=== PATIENT | female | born 1980 | race Caucasian/White ===

== ENCOUNTER 2020-03-29 08:03 | Outpatient (CLI) | payer OTHER, SELFPAY ==
--- NOTE | ~2020-03-29 | MM_ITS ---
EXAMINATION: MM screening leonila BI w livier HISTORY: Screening mammogram TECHNIQUE: Craniocaudal and mediolateral oblique 3-D tomosynthesis images were obtained and synthetic 2-D images were generated. CAD analysis was submitted and interpreted. COMPARISON: 04/28/2019, 10/14/2018, 09/23/2018 BREAST PARENCHYMAL COMPOSITION: There are scattered areas of fibroglandular density. FINDINGS: RIGHT BREAST: Again seen are indeterminate calcifications in the anterior third of the slightly outer breast at the 10:00 location 3 cm from the nipple for which the patient is overdue for diagnostic ma mmogram. Although these appear to be stable, magnification views are recommended. LEFT BREAST: There is no evidence of suspicious mass, calcification, or architectural distortion to s uggest malignancy. There has been no significant interval change. IMPRESSION: 1. No mammographic evidence of malignancy in the left breast. 2. Patient overdue for right diagnostic mammogram and ultrasound to evaluate probably benign right br east calcifications and right breast mass. Right diagnostic mammogram and ultrasound recommended. BI-RADS Category 0: Incomplete: Needs additional imaging evaluation. Reviewed, dictated and finalized at location A. IMPRESSION: 1. No mammographic evidence of malignancy in the left breast. 2. Patient overdue for right diagnostic mammogram and ultrasound to evaluate pr obably benign right breast calcifications and right breast mass. Right diagnost ic mammogram and ultrasound recommended. BI-RADS Category 0: Incomplete: Needs additional imaging evaluation.
== END 2020-03-29 08:04 | disposition home or self-care (01) ==
LOC: ANHIMG 08:04
PROVIDERS: PCP Family Medicine; Visit Provider Nurse Practitioner Family
DX: Z12.31 Encounter for screening mammogram for malignant neoplasm of breast (principal); R92.8 Other abnormal and inconclusive findings on diagnostic imaging of breast
CPT/HCPCS: 77063; 77067

== ENCOUNTER → 2020-04-13 14:42 | Outpatient (CLI) | payer OTHER, SELFPAY ==
--- NOTE | ~2020-04-13 | MMUS_ITS ---
EXAMINATION: MM diagnostic mammo unilat RT, US breast RT complete HISTORY: 1. 04/28/2019 mammogram report confirmed indeterminate microcalcifications in the anterior third of sl ightly outer breast at 10:00 3 cm from nipple 2. Follow-up of 04/28/2019 mammogram report of 5 x 3 mm circumscribed parallel hypoechoic mass with no posterior features or internal vascularity at 9:00 location near the nipple TECHNIQUE: Additional 3-D tomosynthesis images of the right breast were performed and synthetic 2-D i mages were generated. CAD analysis was submitted and interpreted. High resolution complete right ana st ultrasound was performed. COMPARISON: 04/28/2019 diagnostic right digital mammogram and complete right breast ultrasound BREAST PARENCHYMAL COMPOSITION: There are scattered areas of fibroglandular density. FINDINGS: MAMMOGRAPHIC FINDINGS: Some punctate benign appearing microcalcifications are noted. No malignant features are identified. These include: -Some microcalcifications associated with possible 6 mm mass in the lower inner aspect of the upper o uter quadrant approximately 3 cm deep to the nipple. -Another cluster of grouped microcalcifications is noted in association with an approximately 3.4 x 7 .7 mm circumscribed density in the posterior aspect of the upper inner quadrant of the right breast. No suspicious mass or suspicious microcalcifications, architectural distortion or any skin thickening or retraction or noted. ULTRASOUND: No suspicious mass or shadowing is identified. IMPRESSION: 1. No mammographic evidence of malignancy 2. Routine annual mammographic screening is recommended. BI-RADS Category 2: Benign finding(s). Reviewed, dictated and finalized at location A. IMPRESSION: 1. No mammographic evidence of malignancy 2. Routine annual mammographic screening is recommended. BI-RADS Category 2: Benign finding(s).
== END ==
PROVIDERS: PCP Nurse Practitioner Family; Visit Provider Nurse Practitioner Family
DX: R92.8 Other abnormal and inconclusive findings on diagnostic imaging of breast (principal)
CPT/HCPCS: 76641; 77065

== ENCOUNTER → 2020-10-27 01:02 | Outpatient (CLI) | payer OTHER, SELFPAY ==
[2020-10-27 19:48] LABS: SARS-CoV-2 RNA PCR Negative
== END ==
PROVIDERS: PCP Nurse Practitioner Family; Visit Provider Internal Medicine Gastroenterology
DX: Z01.812 Encounter for preprocedural laboratory examination (principal); Z20.822 Contact with and (suspected) exposure to COVID-19
CPT/HCPCS: C9803; U0003; U0005

== ENCOUNTER 2020-10-31 01:37 | Day surgery (SDC) | payer OTHER, SELFPAY ==
[2020-10-11 10:45] VITALS: BMI 37.0
[2020-10-31 07:13] VITALS: BP 114/68; PULSE 73; RESP 16; TEMP 36.6; O2SAT 99; BMI 38.2
[2020-10-31] MEDS: LACTATED RINGERS 1,000 ML 150 ML IV CONT (07:22)
--- NOTE | 2020-10-31 07:41 | WPDANESEPPF ---
Anes - Initial Pre Proc Eval Procedure: Operation Date: 10/31/20 08:30 Proposed Procedures p Screening Colonoscopy - Alejandro Deras MD Date/Time: 10/31/20 07:41 Surgeon: Alejandro Deras MD Pre Op Diagnosis: Neoplasm Screening Patient Data Age: 40 Gender: F Height: 5 ft 5 in Weight: 104.3 kg Last Vital Signs Temp 36.6 C 10/31/20 07:13 Pulse 73 10/31/20 07:13 Resp 16 10/31/20 07:13 BP 114/68 10/31/20 07:13 Pulse Ox 99 10/31/20 07:13 Allergies Allergy/AdvReac Type Severity Reaction Status Date / Time iohexol Allergy Mild rash Verified 10/31/20 07:06 Cephalosporins Allergy Unknown Abdominal Verified 10/31/20 07:06 Pain doxycycline Allergy Unknown Abdominal Verified 10/31/20 07:06 Pain erythromycin base Allergy Unknown Abdominal Verified 10/31/20 07:06 Pain Penicillins Allergy Unknown Hives/SOB Verified 10/31/20 07:06 Home Medications Medication Instructions Recorded Confirmed Type levonorgestrel 20 mcg/24 hours (6 1 device I-UTERINE ONCE 11/07/19 10/11/20 History yrs) 52 mg intrauterine device nystatin-triamcinolone 100,000 1 applic TOPICAL BID #30 gm 02/01/20 10/11/20 Rx unit/gram-0.1 % topical ointment clotrimazole-betamethasone 1 1 applic TOPICAL BID 14 Days #45 gm 08/02/20 10/11/20 Rx %-0.05 % topical cream escitalopram oxalate 10 mg tablet See Rx Instructions .ROUTE 08/07/20 10/11/20 Rx .COMPLEX #90 tablet alprazolam 0.25 mg tablet 0.25 mg PO DAILY PRN #30 tablet 10/04/20 10/11/20 Rx fenofibrate 160 mg tablet 160 mg PO DAILY #90 tablet 10/04/20 10/11/20 Rx atorvastatin 40 mg tablet See Rx Instructions .ROUTE 10/05/20 10/11/20 Rx .COMPLEX #30 tablet esomeprazole magnesium 40 mg See Rx Instructions .ROUTE 10/08/20 10/31/20 Rx capsule,delayed release .COMPLEX #90 cap sodium,potassium,mag sulfates 17.5 See Rx Instructions PO .COMPLEX 10/08/20 Rx gram-3.13 gram-1.6 gram oral soln #354 ml Patient hx anesthesia problems: none Family hx anesthesia problems: none PMFSH Past Medical History Medical History Anal fissure Anxiety Decubitus ulcers Diarrhea Epigastric pain Headache Mixed hyperlipidemia Prediabetes Vaginal delivery x2 Vitamin D deficiency Surgical History Surgical History History of cholecystectomy History of tonsillectomy Family History Family History Father Family history of glaucoma Mother Hypertension Family history of arthritis Family history of malignant neoplasm Family history of hypercholesterolemia Grandparent Family history of hypercholesterolemia Hypertension Cerebrovascular accident Other Acute myocardial infarction Family history of dementia Social History Social History Smoking status: Never smoker Alcohol intake: never Substance use: never Substance use type: does not use Living arrangements: with family Spiritual care concerns: No Anes - Eval Final PreProcedure Day of Procedure 10/31/20 07:41 Patient weight: obese Heart: regular rate and rhythm Lungs: clear to auscultation Airway: Mallampati scale class II Neurological: alert and oriented Last oral intake: >/= 8 hours ASA classification: III Emergent: no Anesthetic plan: proceed Anesthesia type and monitoring: general GIVS and standard monitoring Informed Consent: The patient's anesthetic plan and its attendant risks and benefits were discussed with the patient/family/POA. Questions were solicited and answers provided to the satisfaction of the patient/family/POA.
--- NOTE | 2020-10-31 08:53 | PM.HPGS ---
History of Present Illness History of Present Illness Consent: Risks, benefits, and alternatives have been discussed and questions answered. Patient agrees to proceed with procedure. Chief complaint: Neoplasm Screening Narrative: Josy Dawson is a 40 year old female here for screening colonoscopy, never had one Review of Systems Constitutional: Constitutional: Denies headache(s) and Denies weakness Eyes: Eyes: Denies blurry vision ENT: Reports Normal hearing present, Denies headache(s) and Denies neck pain Cardiovascular: Cardiovascular: Denies chest pain and Denies dyspnea Respiratory: Respiratory: Denies dyspnea Gastrointestinal: Gastrointestinal: Reports no additional gastrointestinal complaints Genitourinary: Genitourinary: Denies dysuria Musculoskeletal: Musculoskeletal: Denies neck pain Integumentary/Breasts: Skin/Breast: Denies dry skin Neurologic: Reports Normal hearing present, Denies headache(s) and Denies weakness Psychiatric: Psychiatric: Denies anxiety Endocrine: Endocrine: Denies change in body appearance Hematologic/Lymphatic: Hematologic/Lymphatic: Denies easy bleeding Allergic/Immunologic: Allergic/Immunologic: Denies urticaria PMFSH Past Medical History Medical History Anal fissure Anxiety Decubitus ulcers Diarrhea Epigastric pain Headache Mixed hyperlipidemia Prediabetes Vaginal delivery x2 Vitamin D deficiency Surgical History Surgical History History of cholecystectomy History of tonsillectomy Family History Family History Father Family history of glaucoma Mother Hypertension Family history of arthritis Family history of malignant neoplasm Family history of hypercholesterolemia Grandparent Family history of hypercholesterolemia Hypertension Cerebrovascular accident Other Acute myocardial infarction Family history of dementia Social History Social History Smoking status: Never smoker Alcohol intake: never Substance use: never Substance use type: does not use Living arrangements: with family Spiritual care concerns: No Meds Home Medications and Allergies Home Medications Medication Instructions Recorded Confirmed Type levonorgestrel 20 mcg/24 hours (6 1 device I-UTERINE ONCE 11/07/19 10/11/20 History yrs) 52 mg intrauterine device nystatin-triamcinolone 100,000 1 applic TOPICAL BID #30 gm 02/01/20 10/11/20 Rx unit/gram-0.1 % topical ointment clotrimazole-betamethasone 1 1 applic TOPICAL BID 14 Days #45 gm 08/02/20 10/11/20 Rx %-0.05 % topical cream escitalopram oxalate 10 mg tablet See Rx Instructions .ROUTE 08/07/20 10/11/20 Rx .COMPLEX #90 tablet alprazolam 0.25 mg tablet 0.25 mg PO DAILY PRN #30 tablet 10/04/20 10/11/20 Rx fenofibrate 160 mg tablet 160 mg PO DAILY #90 tablet 10/04/20 10/11/20 Rx atorvastatin 40 mg tablet See Rx Instructions .ROUTE 10/05/20 10/11/20 Rx .COMPLEX #30 tablet esomeprazole magnesium 40 mg See Rx Instructions .ROUTE 10/08/20 10/31/20 Rx capsule,delayed release .COMPLEX #90 cap sodium,potassium,mag sulfates 17.5 See Rx Instructions PO .COMPLEX 10/08/20 Rx gram-3.13 gram-1.6 gram oral soln #354 ml Allergies Allergy/AdvReac Type Severity Reaction Status Date / Time iohexol Allergy Mild rash Verified 10/31/20 07:06 Cephalosporins Allergy Unknown Abdominal Verified 10/31/20 07:06 Pain doxycycline Allergy Unknown Abdominal Verified 10/31/20 07:06 Pain erythromycin base Allergy Unknown Abdominal Verified 10/31/20 07:06 Pain Penicillins Allergy Unknown Hives/SOB Verified 10/31/20 07:06 Vital Signs Vital Signs - 24 hr 10/31/20 07:13 Temperature 97.9 F Pulse Rate 73 Respiratory Rate 16 Blood Pressure 114/68 Pulse Oximetry 99 Exam Const
[2020-10-31 09:12] VITALS: BP 104/63; PULSE 76; RESP 18; O2SAT 99
[2020-10-31 09:22] VITALS: BP 106/59; PULSE 77; RESP 20; O2SAT 100
[2020-10-31 09:32] VITALS: BP 112/69; PULSE 68; RESP 18; O2SAT 99
== END 2020-10-31 09:47 | disposition home or self-care (01) ==
PROVIDERS: PCP Nurse Practitioner Family; Visit Provider Internal Medicine Gastroenterology
PROC: 0DJD8ZZ Inspection of Lower Intestinal Tract, Via Natural or Artificial Opening Endoscopic (ICD-10-PCS; CPT 45378; principal; 2020-10-31 08:30)
DX: Z12.11 Encounter for screening for malignant neoplasm of colon (principal); D12.2 Benign neoplasm of ascending colon; D12.4 Benign neoplasm of descending colon; K63.5 Polyp of colon; R73.03 Prediabetes; E78.2 Mixed hyperlipidemia; E55.9 Vitamin D deficiency, unspecified; F41.9 Anxiety disorder, unspecified; E66.9 Obesity, unspecified; Z68.38 Body mass index [BMI] 38.0-38.9, adult
CPT/HCPCS: 45380; 45385; 88305; C9803; J2704; J7120; U0003; U0005

== ENCOUNTER 2021-04-22 08:00 | Outpatient (CLI) | payer OTHER, SELFPAY ==
--- NOTE | ~2021-04-22 | MM_ITS ---
EXAMINATION: MM screening leonila BI w livier HISTORY: Screening TECHNIQUE: Craniocaudal and mediolateral oblique 3-D tomosynthesis images were obtained and synthetic 2-D images were generated. CAD analysis was submitted and interpreted. COMPARISON: Comparison to multiple prior studies sequentially, with oldest reviewed study dated 09/23. BREAST PARENCHYMAL COMPOSITION: There are scattered areas of fibroglandular density. FINDINGS: There is no evidence of suspicious mass, calcification, or architectural distortion to sugg est malignancy in either breast. There has been no suspicious interval change. IMPRESSION: 1. No mammographic evidence of malignancy. 2. Recommend routine screening mammography in one year. BI-RADS Category 1: Negative Reviewed, dictated and finalized at location A.
== END 2021-04-22 08:01 | disposition home or self-care (01) ==
LOC: ANHIMG 08:04
PROVIDERS: PCP Nurse Practitioner Family; Visit Provider Nurse Practitioner Family
DX: Z12.31 Encounter for screening mammogram for malignant neoplasm of breast (principal)
CPT/HCPCS: 77063; 77067

== ENCOUNTER 2022-04-04 08:41 | Outpatient (CLI) | payer OTHER, SELFPAY ==
[2022-04-04 20:35] LABS: Hemoglobin A1C 6.7 % (<5.7)
[2022-04-04 20:38] LABS: Alanine Aminotransferase 28 U/L (6-35); Albumin Level 4.2 g/dL (3.5-5.1); Alkaline Phosphatase 70 U/L (38-126); Anion Gap 6 mmol/L (8-16); Aspartate Amino Transferase 41 U/L (14-36); Bilirubin,Total 0.5 mg/dL (0.2-1.3); Blood Urea Nitrogen 11 mg/dL (7-17); Calcium 8.6 mg/dL (8.4-10.2); Carbon Dioxide 28 mmol/L (22-30); Chloride 105 mmol/L (98-107); Cholesterol 133 mg/dL (0-200); Estimated Glomerular Filt Rate > 60; Glucose 139 mg/dL (65-110); HDL Direct 48 mg/dL; Potassium 4.5 mmol/L (3.4-5.0); Sodium 139 mmol/L (137-145); Triglycerides 211 mg/dL (<150)
[2022-04-04 21:02] LABS: LDL Cholesterol Direct < 30 mg/dL
[2022-04-04 21:31] LABS: Vitamin D 25 Hydroxy 13.6 ng/mL
== END 2022-04-04 08:42 | disposition home or self-care (01) ==
LOC: ANHGOSHLAB 08:43
PROVIDERS: PCP Family Medicine; Visit Provider Nurse Practitioner Family
DX: E55.9 Vitamin D deficiency, unspecified (principal); E78.5 Hyperlipidemia, unspecified; I10 Essential (primary) hypertension; R73.03 Prediabetes
CPT/HCPCS: 36415; 80053; 80061; 82306; 83036

== ENCOUNTER 2022-05-21 14:32 | Outpatient (CLI) | payer OTHER, SELFPAY ==
--- NOTE | ~2022-05-21 | MM_ITS ---
EXAMINATION: MM screening leonila BI w livier HISTORY: Screening mammogram TECHNIQUE: Craniocaudal and mediolateral oblique 3-D tomosynthesis images were obtained and synthetic 2-D images were generated. CAD analysis was submitted and interpreted. COMPARISON: 05/02/2021 bilateral screening mammogram 04/13/2020 diagnostic right mammogram and complete right breast ultrasound 03/29/2020 bilateral screening mammogram 09/23/2018 bilateral screening mammogram BREAST PARENCHYMAL COMPOSITION: There are scattered areas of fibroglandular density. FINDINGS: Approximately 5 x 7 mm soft tissue opacity with subtle rounded and punctate microcalcificat ions is noted at the posterior mid inner right breast. This appears stable since 09/23/2018. There is no evidence of suspicious mass, calcification, or architectural distortion to suggest malign aysha in either breast. There has been no suspicious interval change. IMPRESSION: 1. Benign finding 2. Routine mammographic screening is recommended. BI-RADS Category 2: Benign finding(s). Reviewed, dictated and finalized at location A.
== END 2022-05-21 14:33 | disposition home or self-care (01) ==
PROVIDERS: PCP Family Medicine; Visit Provider Nurse Practitioner Family
DX: Z12.31 Encounter for screening mammogram for malignant neoplasm of breast (principal)
CPT/HCPCS: 77063; 77067

== ENCOUNTER 2022-07-11 09:05 | Outpatient (CLI) | payer OTHER, SELFPAY ==
[2022-07-11 19:41] LABS: Basophils Absolute Auto 0.1 K/mm3 (0.0-0.1); Basophils Percent Auto 0.6 % (0.2-1.2); Eosinophils Absolute Auto 0.1 K/mm3 (0-0.3); Eosinophils Percent Auto 1.8 % (0-4.4); Hematocrit 41.3 % (37.0-47.0); Immature Granulocyte Absolute 0.02 K/mm3 (0.00-0.031); Immature Granulocyte Percent A 0.3 % (0-0.5); Lymphocytes Absolute Auto 2.92 K/mm3 (0.9-3.2); Lymphocytes Percent Auto 37.2 % (18.3-44.2); Mean Corpuscular HGB Conc 31.5 g/dl (32-36); Mean Corpuscular Hemoglobin 27.5 pg (26-34); Mean Corpuscular Volume 87.5 fl (80-100); Mean Platelet Volume 10.5 fl (7.4-10.4); Monocytes Absolute Auto 0.4 K/mm3 (0.1-0.6); Neutrophils Absolute Auto 4.3 K/mm3 (1.3-6.7); Neutrophils Percent Auto 55.1 % (45.5-73.1); Platelet Count Result 312 k/mm3 (150-375); Red Blood Count 4.72 M/mm3 (4.2-5.4); Red Cell Distribution Width 12.9 % (11.5-14.5); White Blood Count 7.9 K/mm3 (4.5-10.0)
[2022-07-11 19:57] LABS: Alanine Aminotransferase 35 U/L (6-35); Albumin Level 4.4 g/dL (3.5-5.1); Alkaline Phosphatase 72 U/L (38-126); Anion Gap 11 mmol/L (8-16); Aspartate Amino Transferase 29 U/L (14-36); Bilirubin,Total 0.4 mg/dL (0.2-1.3); Blood Urea Nitrogen 12 mg/dL (7-17); Calcium 9.2 mg/dL (8.4-10.2); Carbon Dioxide 25 mmol/L (22-30); Chloride 100 mmol/L (98-107); Cholesterol 123 mg/dL (0-200); Estimated Glomerular Filt Rate > 60; Glucose 144 mg/dL (65-110); HDL Direct 43 mg/dL; Sodium 136 mmol/L (137-145); Triglycerides 206 mg/dL (<150)
[2022-07-11 20:07] LABS: Hemoglobin A1C 7.1 % (<5.7)
[2022-07-11 20:46] LABS: LDL Cholesterol Direct < 30 mg/dL
== END 2022-07-11 09:06 | disposition home or self-care (01) ==
LOC: ANHGOSHLAB 09:10
PROVIDERS: PCP Family Medicine; Visit Provider Nurse Practitioner Family
DX: E11.9 Type 2 diabetes mellitus without complications (principal); E78.2 Mixed hyperlipidemia
CPT/HCPCS: 36415; 80053; 80061; 83036; 85025

== ENCOUNTER 2022-11-25 09:32 | Outpatient (CLI) | payer OTHER, SELFPAY ==
[2022-11-25 12:15] LABS: Kit Draw Collected
== END 2022-11-25 09:33 | disposition home or self-care (01) ==
LOC: ANHGOSHLAB 09:33
PROVIDERS: PCP Family Medicine; Visit Provider Nurse Practitioner Family
DX: E03.9 Hypothyroidism, unspecified (principal); E11.9 Type 2 diabetes mellitus without complications; E55.9 Vitamin D deficiency, unspecified; E78.2 Mixed hyperlipidemia
CPT/HCPCS: 36415

== ENCOUNTER 2023-03-03 11:50 | Outpatient (CLI) | payer OTHER, SELFPAY ==
[2023-03-03 16:42] LABS: Hemoglobin A1C 5.9 % (<5.7)
== END 2023-03-03 11:51 | disposition home or self-care (01) ==
LOC: ANHGOSHLAB 11:51
PROVIDERS: PCP Family Medicine; Visit Provider Family Medicine
DX: E11.9 Type 2 diabetes mellitus without complications (principal)
CPT/HCPCS: 36415; 83036

== ENCOUNTER 2023-03-05 10:21 | Outpatient (RCR) | payer OTHER, SELFPAY ==
[2023-03-05 08:19] VITALS: BMI 38.2
== END 2023-05-25 10:07 | disposition home or self-care (01) ==
LOC: ANHDMC 10:21
PROVIDERS: PCP Family Medicine; Visit Provider Family Medicine
DX: E11.9 Type 2 diabetes mellitus without complications (principal); E66.9 Obesity, unspecified; Z68.39 Body mass index [BMI] 39.0-39.9, adult; Z71.3 Dietary counseling and surveillance
CPT/HCPCS: 97802

== ENCOUNTER 2023-06-09 08:17 | Outpatient (CLI) | payer OTHER, SELFPAY ==
[2023-06-09 12:21] LABS: Alanine Aminotransferase 37 U/L (6-35); Albumin Level 4.2 g/dL (3.5-5.1); Alkaline Phosphatase 58 U/L (38-126); Anion Gap 7 mmol/L (8-16); Aspartate Amino Transferase 70 U/L (14-36); Bilirubin,Total 0.5 mg/dL (0.2-1.3); Blood Urea Nitrogen 10 mg/dL (7-17); Carbon Dioxide 27 mmol/L (22-30); Chloride 103 mmol/L (98-107); Estimated Glomerular Filt Rate 60; Glucose 105 mg/dL (65-110); Potassium 3.9 mmol/L (3.4-5.0); Sodium 137 mmol/L (137-145)
[2023-06-09 12:54] LABS: Hemoglobin A1C 5.6 % (<5.7)
== END 2023-06-09 08:18 | disposition home or self-care (01) ==
LOC: ANHGOSHLAB 08:19
PROVIDERS: PCP Family Medicine; Visit Provider Family Medicine
DX: E11.9 Type 2 diabetes mellitus without complications (principal); I10 Essential (primary) hypertension; G43.909 Migraine, unspecified, not intractable, without status migrainosus; Z13.29 Encounter for screening for other suspected endocrine disorder
CPT/HCPCS: 36415; 80053; 83036; 84443

== ENCOUNTER 2023-11-30 12:12 | Outpatient (CLI) | payer BC, OTHER, SELFPAY ==
--- NOTE | ~2023-11-30 | XR_ITS ---
Lumbosacral Spine: AP and lateral views Clinical History: Pain Findings: The normal lordotic curve is maintained. The vertebral bodies and posterior elements are i ntact. The intervertebral disc spaces are preserved. The sacroiliac joints are normally outlined. Impression: No significant abnormality. Reviewed, dictated and finalized at [facility]. Impression: No significant abnormality.
--- NOTE | ~2023-11-30 | XR_ITS ---
Cervical Spine: AP, lateral, open-mouth views Clinical History: Pain Findings: There is straightening of normal cervical lordosis. The vertebral bodies and posterior aleksandra ments appear intact. There is mild degenerative disc narrowing at C5-C6 and C6-C7. Pre-vertebral soft tissues are unremarkable. Impression: Mild degenerative spondylosis with straightening of the normal cervical lordosis. Reviewed, dictated and finalized at location . Impression: Mild degenerative spondylosis with straightening of the normal cervical lordosi s.
== END 2023-11-30 12:13 ==
PROVIDERS: PCP Family Medicine; Visit Provider Nurse Practitioner Family
DX: R20.2 Paresthesia of skin (principal); R20.0 Anesthesia of skin; M54.50 Low back pain, unspecified; M47.892 Other spondylosis, cervical region
CPT/HCPCS: 72040; 72100

== ENCOUNTER 2023-11-30 12:34 | Outpatient (CLI) | payer BC, OTHER, SELFPAY ==
[2023-11-30 19:24] LABS: Basophils Percent Auto 0.4 % (0.2-1.2); Eosinophils Absolute Auto 0.2 K/mm3 (0-0.3); Hematocrit 43.3 % (37.0-47.0); Hemoglobin 13.5 g/dL (12.0-15.0); Immature Granulocyte Absolute 0.02 K/mm3 (0.00-0.031); Immature Granulocyte Percent A 0.3 % (0-0.5); Lymphocytes Absolute Auto 2.82 K/mm3 (0.9-3.2); Lymphocytes Percent Auto 35.5 % (18.3-44.2); Mean Corpuscular HGB Conc 31.2 g/dl (32-36); Mean Corpuscular Hemoglobin 27.6 pg (26-34); Mean Corpuscular Volume 88.5 fl (80-100); Mean Platelet Volume 11.2 fl (7.4-10.4); Monocytes Absolute Auto 0.3 K/mm3 (0.1-0.6); Monocytes Percent Auto 4.3 % (2.6-8.5); Neutrophils Absolute Auto 4.6 K/mm3 (1.3-6.7); Neutrophils Percent Auto 57.5 % (45.5-73.1); Platelet Count Result 321 k/mm3 (150-375); Red Blood Count 4.89 M/mm3 (4.2-5.4); Red Cell Distribution Width 13.2 % (11.5-14.5)
[2023-11-30 19:57] LABS: Alanine Aminotransferase 25 U/L (6-35); Albumin Level 4.4 g/dL (3.5-5.1); Alkaline Phosphatase 60 U/L (38-126); Anion Gap 8 mmol/L (8-16); Aspartate Amino Transferase 58 U/L (14-36); Bilirubin,Total 0.6 mg/dL (0.2-1.3); Blood Urea Nitrogen 11 mg/dL (7-17); Calcium 9.6 mg/dL (8.4-10.2); Carbon Dioxide 27 mmol/L (22-30); Chloride 103 mmol/L (98-107); Cholesterol 125 mg/dL (0-200); Estimated Glomerular Filt Rate 60; Glucose 88 mg/dL (65-110); HDL Direct 59 mg/dL; Potassium 4.2 mmol/L (3.4-5.0); Sodium 138 mmol/L (137-145); Triglycerides 126 mg/dL (<150)
[2023-11-30 20:07] LABS: LDL Cholesterol Direct 42 mg/dL
[2023-11-30 20:42] LABS: Hemoglobin A1C 5.6 % (<5.7)
[2023-12-03 23:15] LABS: Vitamin D 1,25 (OH)2 Total 47 pg/mL (18-72); Vitamin D2 1,25 (OH)2 <8 pg/mL; Vitamin D3 1,25 (OH)2 47 pg/mL
== END 2023-11-30 12:35 | disposition home or self-care (01) ==
LOC: ANHGOSHLAB 12:36
PROVIDERS: PCP Family Medicine; Visit Provider Nurse Practitioner Family
DX: E55.9 Vitamin D deficiency, unspecified (principal); E78.2 Mixed hyperlipidemia; Z00.00 Encounter for general adult medical examination without abnormal findings; R79.89 Other specified abnormal findings of blood chemistry; E11.9 Type 2 diabetes mellitus without complications
CPT/HCPCS: 36415; 80053; 80061; 82652; 83036; 84443; 85025

== ENCOUNTER 2023-12-18 08:26 | Outpatient (CLI) | payer BC, OTHER, SELFPAY ==
--- NOTE | ~2023-12-18 | MM_ITS ---
EXAMINATION: MM screening leonila BI w livier HISTORY: Screening TECHNIQUE: Craniocaudal and mediolateral oblique 3-D tomosynthesis images were obtained and synthetic 2-D images were generated. CAD analysis was submitted and interpreted. COMPARISON: 05/21/2022 BREAST PARENCHYMAL COMPOSITION: Not dense: There are scattered areas of fibroglandular density. FINDINGS: There is a developing cluster of calcifications in the upper inner quadrant of the right br east posteriorly. The left breast is stable without evidence for malignancy. IMPRESSION: 1. Developing cluster of right breast calcifications. 2. Magnification views are recommended. BI-RADS Category 0: Incomplete: Needs additional imaging evaluation. Reviewed, dictated and finalized at location A.
== END 2023-12-18 08:27 | disposition home or self-care (01) ==
LOC: ANHIMG 08:27
PROVIDERS: PCP Family Medicine; Visit Provider Obstetrics & Gynecology
DX: Z12.31 Encounter for screening mammogram for malignant neoplasm of breast (principal); R92.8 Other abnormal and inconclusive findings on diagnostic imaging of breast
CPT/HCPCS: 77063; 77067

== ENCOUNTER 2024-01-19 11:25 | Outpatient (CLI) | payer BC, OTHER, SELFPAY ==
--- NOTE | ~2024-01-19 | MMUS_ITS ---
EXAMINATION: MM diagnostic mammo unilat RT, US breast RT limited HISTORY: Developing cluster of microcalcifications reported in the upper inner quadrant of the right breast posteriorly on December 18, 2023 screening mammogram TECHNIQUE: ML view of right breast. Magnification MLO and CC views of right breast. CAD analysis was submitted and interpreted. High resolution upper inner quadrant right breast ultrasound was performed . COMPARISON: December 18, 2023, May 21, 2022 bilateral screening mammogram examinations FINDINGS: MAMMOGRAPHIC FINDINGS: Small chronic cluster of microcalcifications is noted in the posterior upper inner quadrant of the ri ght breast, present on 05/21/2022. These have benign appearance, relatively circular in shape, with no suspicious linear or branching calcifications noted. ULTRASOUND: No suspicious mass or shadowing is detected in the upper inner quadrant of the right breast. IMPRESSION: 1. Chronic benign cluster microcalcifications, posterior upper quadrant of right breast 2. Routine annual mammographic screening is recommended BI-RADS Category 2: Benign finding(s). Reviewed, dictated and finalized at location B. IMPRESSION: 1. Chronic benign cluster microcalcifications, posterior upper quadrant of righ t breast 2. Routine annual mammographic screening is recommended BI-RADS Category 2: Benign finding(s).
== END 2024-01-19 11:26 | disposition home or self-care (01) ==
PROVIDERS: PCP Family Medicine; Visit Provider Obstetrics & Gynecology
DX: R92.8 Other abnormal and inconclusive findings on diagnostic imaging of breast (principal)
CPT/HCPCS: 76642; 77065

== ENCOUNTER 2024-03-23 14:29 | Emergency (ER) | payer BC, OTHER, SELFPAY ==
[2024-03-23 14:35] VITALS: BP 116/75; PULSE 89; RESP 16; TEMP 36.9; O2SAT 99
--- NOTE | 2024-03-23 14:39 | ED.GENADULT ---
HPI - General Adult General Chief complaint: Nausea/Vomiting/Diarrhea Stated complaint: DIARRHEA/NAUSEA Time Seen by Provider: 03/23/24 14:39 Source: patient and RN notes reviewed Mode of arrival: ambulatory Limitations: no limitations History of Present Illness HPI narrative: 43 y/o female with hx DM, GERD presented for c/o diarrhea for 1 week. She endorses lower abdominal cramping and nausea over the past few days. Endorses 6 watery stools today. She was able to tolerate the brat diet and fluids. Took Imodium about 4 days ago without any improvement so she stopped. She denies vomiting, hematochezia, melena, fevers or chills. Denies known sick contacts, changes to medication, travel or food changes. Hx cholecystectomy. Related Data Allergies Allergy/AdvReac Type Severity Reaction Status Date / Time bismuth subgallate Allergy Severe Itching,burning,skin Verified 03/23/24 14:46 [From Anusol-HC] color change hydrocortisone Allergy Severe Itching,burning,skin Verified 03/23/24 14:46 [From Anusol-HC] color change resorcinol [From Anusol-HC] Allergy Severe Itching,burning,skin Verified 03/23/24 14:46 color change sumatriptan [From Imitrex] Allergy Severe catatonic Verified 03/23/24 14:46 zinc oxide [From Anusol-HC] Allergy Severe Itching,burning,skin Verified 03/23/24 14:46 color change iohexol Allergy Mild rash Verified 03/23/24 14:46 Cephalosporins Allergy Unknown Abdominal Verified 03/23/24 14:46 Pain doxycycline Allergy Unknown Abdominal Verified 03/23/24 14:46 Pain erythromycin base Allergy Unknown Abdominal Verified 03/23/24 14:46 Pain Penicillins Allergy Unknown Hives/SOB Verified 03/23/24 14:46 Review of Systems Review of Systems: CONSTITUTIONAL: Denies body aches, fever, chills CARDIOVASCULAR: Denies chest pain, palpitations, or edema. RESPIRATORY: Denies cough or dyspnea. GASTROINTESTINAL: Endorses abdominal pain, nausea, diarrhea. Denies hematochezia, melena, hematemesis GENITOURINARY: Denies dysuria, hematuria, or CVA tenderness. SKIN: Denies rash MUSCULOSKELETAL: Denies back pain, joint pain, or myalgia. NEUROLOGIC: Denies headache, numbness, tingling, or weakness. All systems reviewed & are unremarkable except as noted in HPI and below PMFSH Past Medical History Medical History Anal fissure Anxiety Decubitus ulcers GERD without esophagitis Migraine Mixed hyperlipidemia Obesity Type 2 diabetes mellitus without complications (~03/2022) Vitamin D deficiency Surgical History Surgical History History of cholecystectomy History of colonoscopy with polypectomy (~10/2020) Dr Chandler, repeat in 4 yrs History of gynecological procedure (~2017) Mirena IUD inserted 07/2018 History of tonsillectomy Vaginal delivery x2 Family History Family History Father Family history of glaucoma Mother Hypertension Family history of arthritis Family history of malignant neoplasm Family history of hypercholesterolemia Grandparent Family history of hypercholesterolemia Hypertension Cerebrovascular accident Other Acute myocardial infarction Family history of dementia Social History Social History Social History: , lives in [place] with and 2 school-aged boys. 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 Smoking status: Never smoker Alcohol intake: never Substance use: never Substance use type: does not use Lack of Transportation: No Lack of Food: Never True Current Housing: I Have Housing Concerned About Future Housing: No Difficulty Paying Gas/Electric Bills: No Difficulty Paying for Meds: No Currently Unemployed: No Education: Bachelor's Degree D
== END 2024-03-23 15:02 | disposition left against medical advice (07) ==
PROVIDERS: Emergency Provider Nurse Practitioner Family; PCP Family Medicine
DX: R19.7 Diarrhea, unspecified (principal); K21.9 Gastro-esophageal reflux disease without esophagitis; E78.2 Mixed hyperlipidemia; E11.9 Type 2 diabetes mellitus without complications; E55.9 Vitamin D deficiency, unspecified; E66.9 Obesity, unspecified; Z68.31 Body mass index [BMI] 31.0-31.9, adult; F41.9 Anxiety disorder, unspecified
CPT/HCPCS: 99213; G0463

== ENCOUNTER 2024-03-29 16:49 | Observation (INO) | payer BC, OTHER, SELFPAY ==
--- NOTE | ~2024-03-29 | US_ITS ---
EXAMINATION: US pelvic complete DATE: 03/29/2024 21:06 INDICATION: lower abd pain, fiborids on ct TECHNIQUE: Multiple transabdominal and endovaginal sonographic images of the pelvis were obtained. COMPARISON: CT abdomen and pelvis, same date. FINDINGS: Uterus: 9.7 x 4.6 x 6.3 cm. Lower uterine/cervical fibroid measuring up to 5.3 cm. Endometrial comple x measures 4 mm. Right Ovary: 5.1 x 3.4 x 2.9 cm. Vascular flow is present. 4.6 x 3.2 x 2.7 multiloculated cystic lesi on with thin septae, smooth nunez, and no internal Doppler flow (color score 1). Left Ovary: 2.9 x 2.1 x 2.5 cm. Vascular flow is present. No adnexal mass There is no free fluid in the pelvis. IMPRESSION: 5.3 cm lower uterine/cervical fibroid. 4.6 cm multiloculated right ovarian cyst, low risk of malignancy but meets imaging criteria for gynec ology referral and pelvic MRI for further evaluation (ORADS 3). Reviewed, dictated and finalized at location K. IMPRESSION: 5.3 cm lower uterine/cervical fibroid. 4.6 cm multiloculated right ovarian cyst, low risk of malignancy but meets imag ing criteria for gynecology referral and pelvic MRI for further evaluation (ORA DS 3).
--- NOTE | ~2024-03-29 | CT_ITS ---
EXAMINATION: CT abdomen pelvis wo con DATE: 03/29/2024 19:33 INDICATION: lower abd pain, diarrhea x 2w TECHNIQUE: Computed tomography (CT) of the abdomen and pelvis was performed without intravenous contr ast. Automated exposure control and iterative reconstruction technique were employed. The dose-length product was 825.09 mGy-cm. COMPARISON: 03/10/2019. FINDINGS: Lower thorax: Unremarkable Liver: Normal. Biliary/Gallbladder: Gallbladder is absent. No bile duct dilation. Pancreas: No mass or duct dilation. Spleen: Stable lesions in the spleen, likely cysts or hemangiomas. Adrenals:No mass. Kidneys: No suspicious mass, obstructing stone, or hydronephrosis. GI tract: No small or large bowel dilation. The appendix is dilated to 8 mm, increased since the prio r study. Minimal periappendiceal stranding. The appendix is retrocecal and extends cephalad, lateral to the cecum. Mesentery/Peritoneum: No ascites, mass, or free air. Retroperitoneum: No mass. Pelvis: Normal urinary bladder. Enlarged lower uterine segment with lobular contours likely secondary to fibroids. 4.5 cm simple left ovarian cyst, no additional imaging recommended at this time. Normal left ovary. IUD in good position. Soft Tissues: Soft tissues and body wall unremarkable. Bones: No acute osseous finding. IMPRESSION: Mild dilation and inflammatory change of the appendix, consider acute appendicitis in the differentia l, particularly if accompanied by right lateral abdominal pain, given the location of the appendix. Enlargement of the lower uterine segment, likely by fibroids, which could be a secondary cause for lo wer abdominal pain. Reviewed, dictated and finalized at location K. IMPRESSION: Mild dilation and inflammatory change of the appendix, consider acute appendici tis in the differential, particularly if accompanied by right lateral abdominal pain, given the location of the appendix. Enlargement of the lower uterine segment, likely by fibroids, which could be a secondary cause for lower abdominal pain.
[2024-03-29 17:11] VITALS: BP 131/64; PULSE 97; RESP 16; TEMP 36.4; O2SAT 100
[2024-03-29 19:10] LABS: Basophils Percent Auto 0.2 % (0.2-1.2); Eosinophils Absolute Auto 0.3 K/mm3 (0-0.3); Eosinophils Percent Auto 3.4 % (0-4.4); Hematocrit 40.6 % (37.0-47.0); Hemoglobin 13.5 g/dL (12.0-15.0); Immature Granulocyte Absolute 0.04 K/mm3 (0.00-0.031); Immature Granulocyte Percent A 0.4 % (0-0.5); Lymphocytes Percent Auto 23.6 % (18.3-44.2); Mean Corpuscular HGB Conc 33.3 g/dl (32-36); Mean Corpuscular Volume 84.1 fl (80-100); Monocytes Absolute Auto 0.6 K/mm3 (0.1-0.6); Monocytes Percent Auto 6.9 % (2.6-8.5); Neutrophils Absolute Auto 5.8 K/mm3 (1.3-6.7); Neutrophils Percent Auto 65.5 % (45.5-73.1); Platelet Count Result 270 k/mm3 (150-375); Red Blood Count 4.83 M/mm3 (4.2-5.4); Red Cell Distribution Width 12.7 % (11.5-14.5); White Blood Count 8.9 K/mm3 (4.5-10.0)
[2024-03-29 19:26] LABS: Alanine Aminotransferase 26 U/L (6-35); Albumin Level 4.3 g/dL (3.5-5.1); Alkaline Phosphatase 50 U/L (38-126); Anion Gap 12 mmol/L (4-12); Aspartate Amino Transferase 31 U/L (14-36); Bilirubin,Total 0.6 mg/dL (0.2-1.3); Blood Urea Nitrogen 6 mg/dL (7-17); Calcium 9.3 mg/dL (8.4-10.2); Carbon Dioxide 24 mmol/L (22-30); Chloride 102 mmol/L (98-107); Estimated CRCL calculation 74 ml/min; Estimated Glomerular Filt Rate > 60; Glucose 81 mg/dL (65-110); Lipase 54 U/L (23-300); Potassium 3.6 mmol/L (3.4-5.0); Sodium 138 mmol/L (137-145)
[2024-03-29] MEDS: SODIUM CHLORIDE 0.9% IV 1,000 ML 999 ML IV CONT ×2 (19:43→20:11)
[2024-03-29 19:44] VITALS: BP 123/85; PULSE 90; RESP 17; O2SAT 97
--- NOTE | 2024-03-29 19:53 | ED.ABDPAIN ---
HPI - Abdominal Pain General Chief Complaint: Abdominal Pain Stated Complaint: abdominal pain Time Seen by Provider: 03/29/24 18:33 Source: patient Mode of arrival: ambulatory Limitations: no limitations History of Present Illness HPI narrative: Patient is a 43-year-old female who presents the ED with report of diarrhea and abdominal pain. Patient reports she has had diarrhea since 03/16. Reports multiple episodes of watery stool per day. Denies rectal bleeding or melena. She states she has been feeling weak and fatigued due to the amount of diarrhea. She states any time she eats or drinks, she seems to have near immediate diarrhea. She was seen at an urgent care and was prescribed 3 day course of ciprofloxacin. Patient denies improvement after this. She then began having pain throughout her lower abdomen starting last night. Pain has persisted today which prompted her presentation. Reports intermittent nausea, denies vomiting. Denies fevers. denies but food exposure, recent antibiotics. Related Data Allergies Allergy/AdvReac Type Severity Reaction Status Date / Time bismuth subgallate Allergy Severe Itching,burning,skin Verified 03/29/24 16:50 [From Anusol-HC] color change hydrocortisone Allergy Severe Itching,burning,skin Verified 03/29/24 16:50 [From Anusol-HC] color change resorcinol [From Anusol-HC] Allergy Severe Itching,burning,skin Verified 03/29/24 16:50 color change sumatriptan [From Imitrex] Allergy Severe catatonic Verified 03/29/24 16:50 zinc oxide [From Anusol-HC] Allergy Severe Itching,burning,skin Verified 03/29/24 16:50 color change iohexol Allergy Mild rash Verified 03/29/24 16:50 Cephalosporins Allergy Unknown Abdominal Verified 03/29/24 16:50 Pain doxycycline Allergy Unknown Abdominal Verified 03/29/24 16:50 Pain erythromycin base Allergy Unknown Abdominal Verified 03/29/24 16:50 Pain Penicillins Allergy Unknown Hives/SOB Verified 03/29/24 16:50 Review of Systems Review of Systems: CONSTITUTIONAL: Reports weakness, fatigue. Denies fever, chills, or sweats. GASTROINTESTINAL: see HPI. GENITOURINARY: Denies dysuria or hematuria. All systems reviewed & are unremarkable except as noted in HPI and below PMFSH Past Medical History Medical History Anal fissure Anxiety Decubitus ulcers GERD without esophagitis Migraine Mixed hyperlipidemia Obesity Type 2 diabetes mellitus without complications (~03/2022) Vitamin D deficiency Surgical History Surgical History History of cholecystectomy History of colonoscopy with polypectomy (~10/2020) Dr Chandler, repeat in 4 yrs History of gynecological procedure (~2017) Mirena IUD inserted 07/2018 History of tonsillectomy Vaginal delivery x2 Family History Family History Father Family history of glaucoma Mother Hypertension Family history of arthritis Family history of malignant neoplasm Family history of hypercholesterolemia Grandparent Family history of hypercholesterolemia Hypertension Cerebrovascular accident Other Acute myocardial infarction Family history of dementia Social History Social History Social History: , lives in [place] with and 2 school-aged boys. 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 Smoking status: Never smoker Alcohol intake: never Substance use: never Substance use type: does not use Lack of Transportation: No Lack of Food: Never True Current Housing: I Have Housing Concerned About Future Housing: No Difficulty Paying Gas/Electric Bills: No Difficulty Paying for Meds: No Currently Unemployed: No Education: Bachelor's Degree [employer]
[2024-03-29 19:58] LABS: Lactic Acid Reflex 0.7 mmol/L (0.7-2.0); Magnesium 1.8 mg/dL (1.6-2.3)
[2024-03-29 21:58] LABS: Appearance Urine Cloudy (Clear); Bacteria Urine None Seen /hpf; Bilirubin Urine Negative (Negative); Blood Urine Negative (Negative); Color Urine Yellow (Yellow); Glucose Urine UA Negative (Negative); Ketones Urine Trace mg/dL (Negative); Leukocyte Esterase Ur 1+ LEU/UL (Negative); Nitrate Urine Negative (Negative); Non Pathogenic Casts 0-2; Protein Urine Negative (Negative); RBC Urine 0-2 /hpf (0-2); Specific Grav Ur 1.017 (1.001-1.035); Squamous Epithelial Cell Urine Few /hpf (Few); Urobilinogen Urine 0.2 mg/dL (<2.0)
[2024-03-29 22:00] LABS: Add Urine Microscopic? YES
--- NOTE | 2024-03-29 22:07 | PM.IMHP ---
H&P: HPI History of Present Illness Date/Time: 03/29/24 22:07 Chief Complaint: RLQ pain Narrative: This is a 43-year-old female with past medical history significant for anxiety, GERD, migraine, mixed hyperlipidemia, obesity, type diabetes mellitus. Patient presents to the emergency room with 2 weeks of diarrhea right lower quadrant pain, chills nausea poor per orally intake. Preliminary workup was significant for CT of abdomen and pelvis with acute appendicitis Review of Systems Review of Systems: Right lower quadrant pain, nausea, chills, poor per orally intake x2 weeks PMFSH Past Medical History Medical History Anal fissure Anxiety Decubitus ulcers GERD without esophagitis Migraine Mixed hyperlipidemia Obesity Type 2 diabetes mellitus without complications (~03/2022) Vitamin D deficiency Surgical History Surgical History History of cholecystectomy History of colonoscopy with polypectomy (~10/2020) Dr Chandler, repeat in 4 yrs History of gynecological procedure (~2017) Mirena IUD inserted 07/2018 History of tonsillectomy Vaginal delivery x2 Family History Family History Father Family history of glaucoma Mother Hypertension Family history of arthritis Family history of malignant neoplasm Family history of hypercholesterolemia Grandparent Family history of hypercholesterolemia Hypertension Cerebrovascular accident Other Acute myocardial infarction Family history of dementia Social History Social History Social History: , lives in [place] with and 2 school-aged boys. 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 Smoking status: Never smoker Alcohol intake: never Substance use: never Substance use type: does not use Do You Feel Safe in your Home?: Yes Lack of Transportation: No Lack of Food: Never True Current Housing: I Have Housing Concerned About Future Housing: No Difficulty Paying Gas/Electric Bills: No Difficulty Paying for Meds: No Currently Unemployed: No Education: Bachelor's Degree Difficulty w/ Childcare or Family Care: No Living arrangements: with family Occupation/Education: occupation Gender identity (if verbalized by the patient): Female Sexual Orientation (if Verbalized by the Patient): Straight or Heterosexual Spiritual care concerns: No Agree to blood products: Yes Meds Home Medications and Allergies Home Medications Medication Instructions Recorded Confirmed Type alprazolam 0.25 mg tablet 0.25 mg PO DAILY PRN anxiety #30 04/11/22 03/30/24 Rx tabs atorvastatin 40 mg tablet 40 mg PO QHS #90 tabs 09/22/23 03/30/24 Rx esomeprazole magnesium 20 mg 20 mg PO DAILY #90 caps 10/29/23 03/30/24 Rx capsule,delayed release semaglutide 1 mg/dose (4 mg/3 mL) See Rx Instructions .Route 03/21/24 03/30/24 Rx subcutaneous pen injector (Ozempic) .COMPLEX #9 mL buspirone 10 mg tablet 10 mg PO QHS anxiety #90 tabs 03/23/24 03/30/24 Rx duloxetine 30 mg capsule,delayed 30 mg PO HS 03/30/24 03/30/24 History release (Cymbalta) fenofibrate 160 mg tablet 160 mg PO HS 03/30/24 03/30/24 History Allergies Allergy/AdvReac Type Severity Reaction Status Date / Time bismuth subgallate Allergy Severe Itching,burning,skin Verified 03/30/24 00:38 [From Anusol-HC] color change hydrocortisone Allergy Severe Itching,burning,skin Verified 03/30/24 00:38 [From Anusol-HC] color change resorcinol [From Anusol-HC] Allergy Severe Itching,burning,skin Verified 03/30/24 00:38 color change sumatriptan [From Imitrex] Allergy Severe catatonic Verified 03/30/24 00:38 zinc oxide [From Anusol-HC] Allergy Severe Itching,burning,skin Verifi
[2024-03-29 22:32] VITALS: BP 136/85; PULSE 87; RESP 16; O2SAT 98
[2024-03-29 23:06] VITALS: BP 134/87; PULSE 90; RESP 17; O2SAT 100
[2024-03-29 23:44] VITALS: PULSE 90; RESP 17; O2SAT 100
--- NOTE | 2024-03-29 23:46 | ADMGEN ---
This patient, Josy Dawson, was admitted to Medical Room 343-01. Patient/family oriented to hospital policies and general routines including ID bracelet, bed and alarms, visiting hours, pain management, procedures, bathroom and other care routines, personal items, smoking policy, room service/diet, and visiting hours. Information on how to activate the Rapid Response Team has been discussed. Patient/Family are encouraged to report perceived risks to care and to ask questions if they do not understand what they are told or what they should do.
[2024-03-29 23:53] VITALS: BMI 30.4
[2024-03-30] VITALS (12 sets, daily range): BP systolic 99–127; BP diastolic 65–81; PULSE 80–96; RESP 14–20; TEMP 36.2–36.6; O2SAT 95–100
[2024-03-30] MEDS: SODIUM CHLORIDE 0.9% IV 1,000 ML 125 ML IV CONT ×2 (00:56→11:43)
[2024-03-30] MEDS: metroNIDAZOLE 500 MG/ISO 100ML 500 MG/100 ML BAG 100 MG IVPB ×4 (00:56→21:15)
--- NOTE | 2024-03-30 08:47 | PM.CNGS ---
Assessment and Plan Assessment and plan (1) Acute appendicitis: Qualifiers: Acute appendicitis type: with localized peritonitis Appendicitis abscess presence: without abscess Appendicitis gangrene presence: without gangrene Appendicitis perforation presence: without perforation Qualified Code(s): K35.30 - Acute appendicitis with localized peritonitis, without perforation or gangrene Code(s): K35.80 - Unspecified acute appendicitis Status: Acute Assessment and Plan: I have reviewed the CT and discussed the findings with the patient. She has evidence of acute appendicitis and her pain is localized to the right lower quadrant where the appendix would be. She has been started on broad-spectrum IV antibiotics. I discussed options of medical treatment with antibiotics versus surgical removal of her appendix. Patient would feel more comfortable proceeding with surgery to prevent this ever happening again. Have recommended laparoscopic appendectomy, possible open. I discussed the procedure, risks, benefits, and alternatives. Questions were answered. 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 She presented to the emergency department last night with worsening abdominal pain over the past 24 hours. Prior to this she had been experiencing diarrhea for about 2 weeks. She does not recall any food that she ate that could have caused this and she had no other ill contacts. She denied any hematochezia. She was given a course of Cipro at an urgent care and was told to come to the ED if symptoms were worsening or not resolving. She has never experienced any symptoms like this in the past. She has had a colonoscopy before which was normal except for polyps. Pain has been localized to the right lower quadrant and mid abdomen since it 1st started. She denies any fevers or chills. Review of Systems Review of Systems: All systems reviewed & are unremarkable except as noted in HPI and below Eyes: Eyes: Denies change in vision ENT: Denies hearing loss, Denies neck pain and Denies sore throat Cardiovascular: Cardiovascular: Denies chest pain and Denies dyspnea Respiratory: Respiratory: Denies cough, Denies dyspnea and Denies wheezing Gastrointestinal: Gastrointestinal: Reports as per HPI Genitourinary: Genitourinary: Denies hematuria and Denies dysuria Musculoskeletal: Musculoskeletal: Denies arthralgias, Denies joint swelling and Denies neck pain Allergic/Immunologic: Allergic/Immunologic: Denies wheezing PMFSH Past Medical History Medical History Anal fissure Anxiety Decubitus ulcers GERD without esophagitis Migraine Mixed hyperlipidemia Obesity Type 2 diabetes mellitus without complications (~03/2022) Vitamin D deficiency Surgical History Surgical History History of cholecystectomy History of colonoscopy with polypectomy (~10/2020) Dr Chandler, repeat in 4 yrs History of gynecological procedure (~2017) Mirena IUD inserted 07/2018 History of tonsillectomy Vaginal delivery x2 Family History Family History Father Family history of glaucoma Mother Hypertension Family history of arthritis Family history of malignant neoplasm Family history of hype
--- NOTE | 2024-03-30 11:29 | PM.IMPN ---
Progress Note: A&P Assessment and Plan (1) Acute appendicitis: Qualifiers: Acute appendicitis type: with localized peritonitis Appendicitis abscess presence: without abscess Appendicitis gangrene presence: without gangrene Appendicitis perforation presence: without perforation Qualified Code(s): K35.30 - Acute appendicitis with localized peritonitis, without perforation or gangrene Code(s): K35.80 - Unspecified acute appendicitis Status: Acute Assessment and Plan: Admit to regular medical floor NPO IV fluids Pain management General surgery consult- laparoscopic appendectomy, possible open- today 03/30 Supportive care (2) Uterine fibroid: Qualifiers: Uterine leiomyoma location: unspecified location Qualified Code(s): D25.9 - Leiomyoma of uterus, unspecified Code(s): D25.9 - Leiomyoma of uterus, unspecified Status: Acute Assessment and Plan: Follow-up in outpatient setting (3) GERD without esophagitis: Code(s): K21.9 - Gastro-esophageal reflux disease without esophagitis Status: Acute Assessment and Plan: PPI (4) Type 2 diabetes mellitus without complications: Onset Date: ~03/2022 Qualifiers: 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: without long-term use Qualified Code(s): E11.9 - Type 2 diabetes mellitus without complications Code(s): E11.9 - Type 2 diabetes mellitus without complications Status: Acute Assessment and Plan: Insulin sliding scale as needed (5) Migraine: Qualifiers: Intractability: intractable Migraine type: unspecified Status migrainosus presence: without status migrainosus Qualified Code(s): G43.919 - Migraine, unspecified, intractable, without status migrainosus Code(s): G43.909 - Migraine, unspecified, not intractable, without status migrainosus Status: Acute Assessment and Plan: Stable Time Spent With Patient Time with patient: 25 - 35 minutes Subjective Date/time seen: 03/30/24 11:29 Interval history: Narrative: This is a 43-year-old female with past medical history significant for anxiety, GERD, migraine, mixed hyperlipidemia, obesity, type diabetes mellitus. Patient presents to the emergency room with 2 weeks of diarrhea right lower quadrant pain, chills nausea poor per orally intake. Preliminary workup was significant for CT of abdomen and pelvis with acute appendicitis . 03/30- saw per surgery- chose to proceed with laparoscopic appendectomy, possible open. Review of Systems Review of Systems: Right lower quadrant pain, nausea, chills, poor per orally intake x2 weeks Constitutional: Constitutional: Reports chills Cardiovascular: Cardiovascular: Denies chest pain Respiratory: Respiratory: Denies chest congestion and Denies cough Exam Narrative: Patient is sitting in a stretcher Const: General: comfortable, no acute distress, well developed, alert and awake Nutritional Appearance: obese Orientation/consciousness: patient oriented x3 Other: Well-appearing HENMT: Head: normal to inspection, normocephalic and atraumatic Ears: hearing grossly normal bilaterally Face/Nose/Sinus: normal facial exam Face and sinus: normal facial exam Eyes: General: appearance normal, both eyes and all related structures Pupils: Equal, round and reactive pupils present EOM: EOMs intact bilaterally Neck: Neck: full ROM, no lymphadenopathy and no JVD Thyroid: thyroid normal Lymphatic: no lymphadenopathy noted Resp: Effort & Inspection: normal respiratory effort and able to speak in complete sentences Auscultation: clear to auscultation bilaterally Cardio: Jugular venous distension: no JVD Rate: regular rate Rhythm: regular rhythm Heart sounds: S1 normal heart sound present and S2 normal heart sound present GI: Inspection: obesity : General: Yes deferred Skin: Rashes: no rashes Wounds: no wounds Neuro: General: pa
[2024-03-30 11:37] LABS: Toxigenic C. Diff NEGATIVE (NEGATIVE)
[2024-03-30] MEDS: LACTATED RINGERS 1,000 ML 30 ML IV CONT (13:00)
--- NOTE | 2024-03-30 13:06 | WPDANESEPPF ---
Anes - Initial Pre Proc Eval Procedure: Operation Date: 03/30/24 14:00 Proposed Procedures p Laparoscopic Appendectomy - Aldo Weiss DO Date/Time: 03/30/24 13:06 Surgeon: Alexandrea Lala MD Pre Op Diagnosis: Appendicitis, Diarrhea Patient Data Age: 43 Gender: F Height: 1.65 m Weight: 83 kg Last Vital Signs Temp 97.4 F L 03/30/24 06:00 Pulse 96 03/30/24 06:00 Resp 18 03/30/24 06:00 BP 127/68 03/30/24 06:00 Pulse Ox 97 03/30/24 06:00 O2 Del Method Room Air 03/30/24 08:00 Allergies Allergy/AdvReac Type Severity Reaction Status Date / Time bismuth subgallate Allergy Severe Itching,burning,skin Verified 03/30/24 00:38 [From Anusol-HC] color change hydrocortisone Allergy Severe Itching,burning,skin Verified 03/30/24 00:38 [From Anusol-HC] color change resorcinol [From Anusol-HC] Allergy Severe Itching,burning,skin Verified 03/30/24 00:38 color change sumatriptan [From Imitrex] Allergy Severe catatonic Verified 03/30/24 00:38 zinc oxide [From Anusol-HC] Allergy Severe Itching,burning,skin Verified 03/30/24 00:38 color change iohexol Allergy Mild rash Verified 03/30/24 00:38 Cephalosporins Allergy Unknown Abdominal Verified 03/30/24 00:38 Pain doxycycline Allergy Unknown Abdominal Verified 03/30/24 00:38 Pain erythromycin base Allergy Unknown Abdominal Verified 03/30/24 00:38 Pain Penicillins Allergy Unknown Hives/SOB Verified 03/30/24 00:38 Home Medications Medication Instructions Recorded Confirmed Type alprazolam 0.25 mg tablet 0.25 mg PO DAILY PRN anxiety #30 04/11/22 03/30/24 Rx tabs atorvastatin 40 mg tablet 40 mg PO QHS #90 tabs 09/22/23 03/30/24 Rx esomeprazole magnesium 20 mg 20 mg PO DAILY #90 caps 10/29/23 03/30/24 Rx capsule,delayed release semaglutide 1 mg/dose (4 mg/3 mL) See Rx Instructions .Route 03/21/24 03/30/24 Rx subcutaneous pen injector (Ozempic) .COMPLEX #9 mL buspirone 10 mg tablet 10 mg PO QHS anxiety #90 tabs 03/23/24 03/30/24 Rx duloxetine 30 mg capsule,delayed 30 mg PO HS 03/30/24 03/30/24 History release (Cymbalta) fenofibrate 160 mg tablet 160 mg PO HS 03/30/24 03/30/24 History Laboratory Tests 03/29/24 03/29/24 03/29/24 18:59 19:42 21:47 WBC 8.9 K/mm3 (4.5-10.0) RBC 4.83 M/mm3 (4.2-5.4) Hgb 13.5 g/dL (12.0-15.0) Hct 40.6 % (37.0-47.0) MCV 84.1 fl (80-100) MCH 28.0 pg (26-34) MCHC 33.3 g/dl (32-36) RDW 12.7 % (11.5-14.5) Plt Count 270 k/mm3 (150-375) MPV 10.0 fl (7.4-10.4) Immature Gran % (Auto) 0.4 % (0-0.5) Neut % (Auto) 65.5 % (45.5-73.1) Lymph % (Auto) 23.6 % (18.3-44.2) [place] % (Auto) 6.9 % (2.6-8.5) Eos % (Auto) 3.4 % (0-4.4) Baso % (Auto) 0.2 % (0.2-1.2) Lymph # (Auto) 2.10 K/mm3 (0.9-3.2) [place] # (Auto) 0.6 K/mm3 (0.1-0.6) Eos # (Auto) 0.3 K/mm3 (0-0.3) Baso # (Auto) 0.0 K/mm3 (0.0-0.1) Abs Immat Gran (auto) 0.04 H K/mm3 (0.00-0.031) Absolute Neuts (auto) 5.8 K/mm3 (1.3-6.7) Absolute Nucleated RBC 0.000 K/mm3 (0.0-0.012) Nucleated RBC % 0.0 % (0.0-0.2) Sodium 138 mmol/L (137-145) Potassium 3.6 mmol/L (3.4-5.0) Chloride 102 mmol/L (98-107) Carbon Dioxide 24 mmol/L (22-30) Anion Gap 12 mmol/L (4-12) BUN 6 L D mg/dL (7-17) Creatinine 0.90 mg/dL (0.7-1.0) Estim Creat Clear Calc 74 ml/min Estimated GFR > 60 (59 - ) Glucose 81 mg/dL (65-110) Lactic Acid 0.7 mmol/L (0.7-2.0) Calcium 9.3 mg/dL (8.4-10.2) Magnesium 1.8 mg/dL (1.6-2.3) Total Bilirubin 0.6 mg/dL (0.2-1.3) AST 31 U/L (14-36) ALT 26 U/L (6-
[2024-03-30] MEDS: SCOPOLAMINE 1 MG PATCH 1 PATCH TRANSDERM (13:10)
--- NOTE | 2024-03-30 13:50 | WPDHPUPDATE1 ---
History and Physical Update Update Date/Time: 03/30/24 13:50 History and Physical has been reviewed, including an updated exam of the patient. There are NO changes in the patient's condition. Risks, benefits, and alternatives have been discussed and questions answered. Patient agrees to proceed with procedure.
[2024-03-30] MEDS: BUPIVACAINE/EPINEPHRINE 0.5% 50 ML VIAL 30 ML INFILTRATE (14:25)
--- NOTE | 2024-03-30 14:51 | W.PM.PROC2 ---
Procedure Note - Detailed Date of Procedure 03/30/24 Pre-op Diagnosis Appendicitis Post-op Diagnosis Same (Acute uncomplicated appendicitis) Procedure Performed Laparoscopic appendectomy Surgeon Aldo Weiss, Anesthesia General and Local (0.5% bupivicaine with epinephrine) Indications This is a 43-year-old woman who presented to the emergency department last night with right lower quadrant abdominal pain for the past 24 hours. She had been experiencing diarrhea for about 2 weeks prior to this but denied any previous abdominal pains. CT in the emergency department showed evidence of acute appendicitis. Her clinical exam was also consistent with these findings. Discussions were made with the patient about treatment options and decision was made to proceed with laparoscopic appendectomy, possible open. Findings Laparoscopic appendectomy was performed. The patient had a few omental adhesions in the right upper quadrant from her prior laparoscopic cholecystectomy. These were taken down with scissors in order to adequately visualize the entire abdomen. The cecum was identified and the appendix was visualized in the right lower quadrant. The tip of the appendix appeared dilated and inflamed but there did not appear to be any evidence of perforation or abscess. No other infectious signs were noted. The patient did have a right ovarian cyst but no other abnormalities. The appendix was removed and sent to the lab for pathology. Description of Procedure Procedure as well as risks, benefits, and alternatives were explained to the patient. The patient agreed to proceed. Written consent was obtained and placed in chart prior to procedure. The patient was brought back to surgical suite. She was placed supine on operating table. Time-out was done to confirm the patient and procedure. The patient was then intubated by the Anesthesia Department. Her abdomen was prepped and draped in sterile fashion using chlorhexidine prep. A 5 mm incision was made just to the left of the patient's umbilicus and a 5 mm Optiview trocar was advanced through the abdominal layers under direct visualization. Once inside the peritoneal cavity, carbon dioxide insufflation was used to create a pneumoperitoneum. The camera was inserted and the abdomen was inspected. No immediate abnormalities were identified. The patient was then placed in slight Trendelenburg position and rotated to the left. A 5 mm incision was made in the suprapubic region in midline and a 5 mm trocar was inserted under direct visualization. A 12 mm incision was made in the left lower quadrant and a 12 mm trocar was inserted under direct visualization. The right lower quadrant was carefully inspected. The cecum was identified and then this was traced back to the appendix. The appendix was identified and grasped at the mesoappendix and lifted anteriorly. Careful blunt dissection was carried out at the base of the appendix through the mesoappendix using a [place] grasper. An Endo-LIZETT 45 mm blue load stapler was then advanced across the base of the appendix and clamped and fired. A white reload was then clamped across the mesoappendix and fired. This freed up our appendix completely. It was then placed in an EndoCatch bag and removed through the left lower quadrant port. The staple lines were then inspected. There was some bleeding along the vascular staple line which was then controlled with a 5 mm Endoclip light equipment operator. Hemostasis then appeared adequate and the staple lines appeared secure. The area was then irrigated with sterile saline. The pelvis was then carefully inspected and irrigated with sterile saline as well and the remainder of the abdomen was carefully inspected. The patient was then flattened out in bed. One final inspection was made around the abdominal cavity and no other abnormalities were seen. The left lower quadrant port was removed and a Khadar-Meek cone was used to approximate the
[2024-03-30] MEDS: LACTATED RINGERS 1,000 ML 100 ML IV CONT (17:24)
[2024-03-31 00:27] VITALS: BP 119/71; PULSE 92; RESP 18; TEMP 36.1; O2SAT 98
[2024-03-31 04:55] VITALS: BP 114/76; PULSE 78; RESP 20; TEMP 36.6; O2SAT 98
[2024-03-31] MEDS: HYDROcodone/acetaminophen (*CRX) 5-325 MG TABLET 1 TAB PO (04:59)
[2024-03-31] MEDS: metroNIDAZOLE 500 MG/ISO 100ML 500 MG/100 ML BAG 100 MG IVPB (05:00)
[2024-03-31 05:46] LABS: Hematocrit 36.7 % (37.0-47.0); Mean Corpuscular HGB Conc 32.7 g/dl (32-36); Mean Corpuscular Hemoglobin 27.5 pg (26-34); Mean Corpuscular Volume 84.2 fl (80-100); Mean Platelet Volume 9.9 fl (7.4-10.4); Platelet Count Result 275 k/mm3 (150-375); Red Blood Count 4.36 M/mm3 (4.2-5.4); Red Cell Distribution Width 12.4 % (11.5-14.5)
[2024-03-31 06:00] LABS: Anion Gap 9 mmol/L (4-12); Blood Urea Nitrogen 4 mg/dL (7-17); Calcium 8.2 mg/dL (8.4-10.2); Carbon Dioxide 24 mmol/L (22-30); Chloride 104 mmol/L (98-107); Estimated CRCL calculation 107 ml/min; Estimated Glomerular Filt Rate > 60; Glucose 113 mg/dL (65-110); Potassium 3.4 mmol/L (3.4-5.0); Sodium 137 mmol/L (137-145)
[2024-03-31 08:00] VITALS: BP 113/67; PULSE 76; RESP 18; TEMP 36.6; O2SAT 97
[2024-03-31] MEDS: ENOXAPARIN 40 MG/0.4 ML SYRINGE SUB-Q (09:20)
--- NOTE | 2024-03-31 11:34 | PM.DS ---
DS: Admitting Diagnosis Discharge Date 03/31 Admitting Diagnosis abd pain DS: Discharge Diagnosis Discharge Diagnosis (1) Acute appendicitis: Qualifiers: Acute appendicitis type: with localized peritonitis Appendicitis abscess presence: without abscess Appendicitis gangrene presence: without gangrene Appendicitis perforation presence: without perforation Qualified Code(s): K35.30 - Acute appendicitis with localized peritonitis, without perforation or gangrene Code(s): K35.80 - Unspecified acute appendicitis Status: Acute Assessment and Plan: Admit to regular medical floor NPO IV fluids Pain management General surgery consult- laparoscopic appendectomy, possible open- today 03/30 Supportive care (2) Uterine fibroid: Qualifiers: Uterine leiomyoma location: unspecified location Qualified Code(s): D25.9 - Leiomyoma of uterus, unspecified Code(s): D25.9 - Leiomyoma of uterus, unspecified Status: Acute Assessment and Plan: Follow-up in outpatient setting (3) GERD without esophagitis: Code(s): K21.9 - Gastro-esophageal reflux disease without esophagitis Status: Acute Assessment and Plan: PPI (4) Type 2 diabetes mellitus without complications: Onset Date: ~03/2022 Qualifiers: 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: without intermodal owner operator truck driver use Qualified Code(s): E11.9 - Type 2 diabetes mellitus without complications Code(s): E11.9 - Type 2 diabetes mellitus without complications Status: Acute Assessment and Plan: Insulin sliding scale as needed (5) Migraine: Qualifiers: Intractability: intractable Migraine type: unspecified Status migrainosus presence: without status migrainosus Qualified Code(s): G43.919 - Migraine, unspecified, intractable, without status migrainosus Code(s): G43.909 - Migraine, unspecified, not intractable, without status migrainosus Status: Acute Assessment and Plan: Stable Plan final dx: appendicitis s/p Laparoscopic appendectomy DS: Summary Hospital Course Hospital Course: Narrative: This is a 43-year-old female with past medical history significant for anxiety, GERD, migraine, mixed hyperlipidemia, obesity, type diabetes mellitus. Patient presents to the emergency room with 2 weeks of diarrhea right lower quadrant pain, chills nausea poor per orally intake. Preliminary workup was significant for CT of abdomen and pelvis with acute appendicitis . 03/30- saw per surgery- chose to proceed with laparoscopic appendectomy, possible open. 03/30 Laparoscopic appendectomy-went well, no immediate complications. Surgery rounded on pt- and it is ok to discharge Time Spent with Patient Time attestation: Total time spent providing and/or coordinating discharge services: Exam Narrative: Patient is alertm oriented, calm, pain is well controlled Const: General: comfortable, no acute distress, well developed, alert, awake and obese Nutritional Appearance: obese Orientation/consciousness: patient oriented x3 Other: Well-appearing HENMT: Head: normal to inspection, normocephalic and atraumatic Ears: hearing grossly normal bilaterally Face/Nose/Sinus: normal facial exam Face and sinus: normal facial exam Eyes: General: appearance normal, both eyes and all related structures Pupils: Equal, round and reactive pupils present EOM: EOMs intact bilaterally Neck: Neck: full ROM, no lymphadenopathy and no JVD Lymphatic: no lymphadenopathy noted Resp: Effort & Inspection: normal respiratory effort and able to speak in complete sentences Auscultation: clear to auscultation bilaterally Cardio: Jugular venous distension: no JVD Rate: regular rate Rhythm: regular rhythm Heart sounds: S1 normal heart sound present and S2 normal heart sound present GI: Inspection: obesity : General: Yes deferred Skin: Rashes: no rashes Wounds: no wounds Neuro:
--- NOTE | 2024-03-31 14:54 | PM.PNGS ---
Progress Note: A&P Assessment and Plan (1) Acute appendicitis: Qualifiers: Acute appendicitis type: with localized peritonitis Appendicitis abscess presence: without abscess Appendicitis gangrene presence: without gangrene Appendicitis perforation presence: without perforation Qualified Code(s): K35.30 - Acute appendicitis with localized peritonitis, without perforation or gangrene Code(s): K35.80 - Unspecified acute appendicitis Status: Acute Assessment and Plan: POD#1 and doing well. Tolerating a solid diet and pain is well controlled. Surgically stable for discharge. F/u with Dr. Weiss when she returns from vacation or sooner if needed. Plan I have discussed the patient's case and plan of care with Dr. Weiss. Subjective Subjective Date/Time Seen: 03/31/24 14:54 Patient reports: no new complaints, feels better and voiding w/o difficulty Interval history: Patient still having diarrhea and mild lower abdominal pain, but improved since admission. She reports some mild, new sharp pain in her RLQ that is intermittent with certain movements. At rest, she is comfortable. No nausea or vomiting. She is tolerating a solid diet. Not much appetite, which has been ongoing for the past 2 weeks. Exam Const: General: comfortable and no acute distress Orientation/consciousness: patient oriented x3 GI: Inspection: non-distended GI Palp: Yes Soft to palpation, Yes Tenderness to palpation present (GI) (mild incisional) and No Guarding due to palpation present (GI) Auscultation: normal bowel sounds Objective Data Vital Signs Vital Signs: Vital Signs - 24 hr 03/30/24 15:05 03/30/24 15:20 03/30/24 15:25 Temperature Pulse Rate 84 84 Respiratory Rate 16 16 Blood Pressure 120/69 121/71 Pulse Oximetry 100 100 Oxygen Delivery Simple Face Mask Simple Face Mask Room Air Oxygen Flow Rate 6 6 03/30/24 15:35 03/30/24 15:50 03/30/24 16:00 Temperature 97.4 F L Pulse Rate 80 83 83 Respiratory Rate 14 14 16 Blood Pressure 117/72 117/67 115/70 Pulse Oximetry 97 97 96 Oxygen Delivery Room Air Room Air Room Air Oxygen Flow Rate 03/30/24 16:34 03/30/24 18:10 03/30/24 19:44 Temperature 97.5 F L 97.2 F L 97.7 F Pulse Rate 88 89 93 Respiratory Rate 14 15 20 Blood Pressure 116/65 123/66 125/72 Pulse Oximetry 95 97 99 Oxygen Delivery Oxygen Flow Rate 03/30/24 20:00 03/31/24 00:27 03/31/24 04:55 Temperature 97.0 F L 97.9 F Pulse Rate 92 78 Respiratory Rate 18 20 Blood Pressure 119/71 114/76 Pulse Oximetry 98 98 Oxygen Delivery Room Air Oxygen Flow Rate 03/31/24 08:00 03/31/24 08:00 Temperature 97.9 F Pulse Rate 76 Respiratory Rate 18 Blood Pressure 113/67 Pulse Oximetry 97 Oxygen Delivery Room Air Oxygen Flow Rate Intake/Output Intake/Output: Intake & Output 03/28/24 03/29/24 03/30/24 03/31/24 23:59 23:59 23:59 23:59 Intake Total 2049 1719 2059 Output Total 300 Balance 2049 1419 2059 Meds/Results Medications: Active Medications Generic Name Dose Route Start Last Admin Trade Name Freq PRN Reason Stop Dose Admin Hydrocodone Bitart/Acetaminophen 1 tab 03/30/24 16:04 03/31/24 04:59 Hydrocodone/Acetaminophen (*Crx) 5-325 Mg Tablet PO 1 tab Q4H PRN Administration Pain Rated 4-6 Hydrocodone Bitart/Acetaminophen 1 tab 03/30/24 16:04 Hydrocodone/Acetaminophen (*Crx) 7.5-325 Mg Tablet PO Q4H PRN Pain Rated 7-10 Diphenhydramine HCl 25 mg 03/30/24 16:04 Diphenhydramine Hcl Inj 50 Mg/Ml Vial IV PUSH Q6H PRN Itching Enoxaparin Sodium 40 mg 03/31/24 09:00 03/31/24 09:20 Enoxaparin 40 Mg/0.4 Ml Syringe SUB-Q 40 mg DAILY JAIME Administration Ceftriaxone Sodium 1 gm in 50 mls @ 100 mls/hr 03/30/24 22:00 03/30/24 21:45 Rocephin 1 Gm/Ns 50 Ml IVPB Infused Q24H JAIME Infusion Metronidazole 500 mg in 100 mls @ 100 mls/hr 03/30/24 06:00 03/31/24 06:00 Flagyl 500 Mg/
== END 2024-03-31 15:20 | disposition home or self-care (01) ==
LOC: ANHED 22:57 → ANH3MED 23:00
PROVIDERS: Family Medicine; Surgery; Admitting Provider Internal Medicine; Emergency Provider Physician Assistant; PCP Family Medicine; Visit Provider Internal Medicine
PROC: 0DTJ4ZZ Resection of Appendix, Percutaneous Endoscopic Approach (ICD-10-PCS; CPT 44970; principal; 2024-03-30 14:00)
DX: K35.80 Unspecified acute appendicitis (principal); N83.201 Unspecified ovarian cyst, right side; D25.9 Leiomyoma of uterus, unspecified; E11.9 Type 2 diabetes mellitus without complications; E78.2 Mixed hyperlipidemia; K21.9 Gastro-esophageal reflux disease without esophagitis; E55.9 Vitamin D deficiency, unspecified; F41.9 Anxiety disorder, unspecified; Z79.85 Long-term (current) use of injectable non-insulin antidiabetic drugs; E66.9 Obesity, unspecified; Z68.30 Body mass index [BMI] 30.0-30.9, adult
CPT/HCPCS: 44970; 36415; 74176; 76856; 80048; 80053; 81001; 81025; 83605; 83690; 83735; 85025; 85027; 87045; 87086; 87427; 87449; 87493; 88304; 96361; 96365; 99285; A9270; G0378; J0330; J0696; J1170; J1200; J1650; J1836; J2250; J2405; J2704; J3010; J7030; J7120

== ENCOUNTER 2024-05-30 09:15 | Outpatient (CLI) | payer BC, OTHER, SELFPAY ==
[2024-05-30 13:12] LABS: Alanine Aminotransferase 22 U/L (6-35); Albumin Level 3.9 g/dL (3.5-5.1); Alkaline Phosphatase 66 U/L (38-126); Anion Gap 10 mmol/L (4-12); Aspartate Amino Transferase 35 U/L (14-36); Bilirubin,Total 0.4 mg/dL (0.2-1.3); Blood Urea Nitrogen 10 mg/dL (7-17); Carbon Dioxide 26 mmol/L (22-30); Chloride 98 mmol/L (98-107); Cholesterol 99 mg/dL (0-200); Estimated Glomerular Filt Rate > 60; Glucose 82 mg/dL (65-110); HDL Direct 64 mg/dL; Potassium 3.8 mmol/L (3.4-5.0); Sodium 134 mmol/L (137-145); Triglycerides 91 mg/dL (<150)
[2024-05-30 13:42] LABS: LDL Cholesterol Direct < 30 mg/dL
[2024-05-30 13:45] LABS: Creatinine Urine 111.5 mg/dL
[2024-05-30 13:51] LABS: MALB Creatinine Ratio 13.5 mg/g (0-30); Microalbumin Urine Random 15.1 mg/L (0-16.7)
[2024-05-30 14:10] LABS: Hemoglobin A1C 5.2 % (<5.7)
== END 2024-05-30 09:16 | disposition home or self-care (01) ==
LOC: ANHGOSHLAB 09:17
PROVIDERS: PCP Family Medicine; Visit Provider Nurse Practitioner Family
DX: E11.9 Type 2 diabetes mellitus without complications (principal); E78.2 Mixed hyperlipidemia
CPT/HCPCS: 36415; 80053; 80061; 82043; 83036

== ENCOUNTER 2024-08-08 09:11 | Outpatient (CLI) | payer BC, OTHER, SELFPAY ==
--- NOTE | ~2024-08-08 | US_ITS ---
EXAMINATION: US pelvic complete w TV DATE: 08/08/2024 09:40 INDICATION: Unspecified ovarian cyst, unspecified side. TECHNIQUE: Multiple transabdominal and transvaginal sonographic images of the pelvis were obtained. COMPARISON: Ultrasound pelvis 03/29/2024, CT abdomen and pelvis 03/29/2024 FINDINGS: TRANSABDOMINAL ULTRASOUND: The uterus measures 9.3 x 5.4 x 3.9 cm. There is no free fluid in the pelvis. TRANSVAGINAL ULTRASOUND: The endometrial complex measures 4 mm in thickness. There is a 5.0 cm intramural fibroid. There are n abothian cysts in the cervix. The right ovary measures 4.9 x 5.3 x 4.0 cm. The left ovary measures 3. 0 x 2.4 x 1.9 cm. There is a 4.5 cm cyst in right ovary. There is normal vascular flow in the ovaries . IMPRESSION: 1. 4.5 cm cyst in right ovary, likely a follicular cyst. 2. 5.0 cm intramural fibroid. Reviewed, dictated and finalized at location A. STEWARD
== END 2024-08-08 09:12 | disposition home or self-care (01) ==
LOC: GOSHIMG 09:12
PROVIDERS: PCP Obstetrics & Gynecology; Visit Provider Obstetrics & Gynecology
DX: N83.201 Unspecified ovarian cyst, right side (principal); D25.1 Intramural leiomyoma of uterus; Z87.42 Personal history of other diseases of the female genital tract
CPT/HCPCS: 76830; 76856

== ENCOUNTER 2024-08-17 13:48 | Outpatient (CLI) | payer BC, OTHER, SELFPAY ==
[2024-08-19 03:13] LABS: CA-125 10 U/mL (<35)
== END 2024-08-17 13:49 | disposition home or self-care (01) ==
LOC: ANHGOSHLAB 13:49
PROVIDERS: PCP Obstetrics & Gynecology; Visit Provider Obstetrics & Gynecology
DX: N83.201 Unspecified ovarian cyst, right side (principal)
CPT/HCPCS: 36415; 86304

== ENCOUNTER 2024-11-11 14:12 | Outpatient (CLI) | payer BC, OTHER, SELFPAY | END 2024-11-11 14:13 | disposition home or self-care (01) | PROVIDERS: PCP Obstetrics & Gynecology; Visit Provider Obstetrics & Gynecology | DX: N83.292 Other ovarian cyst, left side (principal); N83.291 Other ovarian cyst, right side | CPT/HCPCS: 76830; 76856 ==

== ENCOUNTER 2024-11-29 08:44 | Outpatient (CLI) | payer BC, OTHER, SELFPAY ==
--- OUTSIDE RECORDS SUMMARY | 2024-11-29 09:01 | XMS_ITS | Referral Summary ---
Author Organization [facility] [address] Address [address] [place] [phone] Care Team Providers Care Diet Therapist Name Role Phone Luisana Le NP Primary Care Provider [phone] Allergies Active Allergy Reactions Criticality Noted Date Comments Penicillins Hives Medium 03/19/2000 Medications omeprazole (PriLOSEC) 40 mg capsule Take 1 capsule (40 mg total) by mouth daily Active atorvastatin (LIPITOR) 10 mg tablet Take 1 tablet (10 mg total) by mouth daily Active escitalopram (LEXAPRO) 10 mg tablet Take 1 tablet (10 mg total) by mouth daily Active busPIRone (BUSPAR) 10 mg tablet TAKE 1 TABLET BY MOUTH EVERY DAY AT BEDTIME NEEDED FOR ANXIETY 3 Active clotrimazole-be tamethasone (LOTRISONE) cream APPLY TOPICALLY TO THE AFFECTED AREA TWICE DAILY FOR 2 WEEKS [address] (NexIUM) 40 mg capsule Take 1 capsule (40 mg total) by mouth daily 3 Active fenofibrate (TRIGLIDE) 160 mg tablet Take 1 tablet (160 mg total) by mouth daily 3 Active HYDROcodone-audelia taminophen (NORCO) 5-325 mg per tablet Take by mouth every 8 (eight) hours as needed 3 Active metFORMIN (GLUCOPHAGE) 500 mg tablet 3 Active Ozempic 0.25 mg or 0.5 mg(2 mg/1.5 mL) pen injector injection 3 Active albuterol HFA (PROVENTIL HFA,VENTOLIN HFA,PROAIR HFA) 90 mcg/actuation inhalerIndicati ons:Wheezing Inhale 2 puffs every 6 (six) hours as needed for wheezing 1 each 3 Active methylPREDNISol one (MEDROL DOSEPACK) 4 mg DosepackIndicat ions:Wheezing Take 6 tabs on day 1, reduce dose by 1 daily until prescription is complete. 1 packet 3 Active benzonatate (TESSALON) 200 mg capsuleIndicati ons:Viral URI with cough Take 1 capsule (200 mg total) by mouth 3 (three) times a day as needed for cough keep tessalon out of reach of children, especially children under the age of 10, due to possible serious risk such as if ingested by children under the age of 10. 30 capsule 3 Active Active Problems No known active problems Social History Tobacco Use Types Packs/Day Years Used Date Smoking Tobacco: Never Tobacco Cessation:Counseling Given: Not Answered AUDIT-C Answer Date Recorded Q1: How often do you have a drink containing alcohol? Never 03/11/2022 Q2: How many drinks containi ng alcohol do you have on a typical day when you are drinking? Patient does not drink 2 Frequency of Binge Drinking Not on file 02/13 Personal Safety Answer Date Recorded Getting School Help Needed Not on file 09/07 Comments Unknown Sex and Gender Information Value Date Recorded Sex Assigned at Not on file Legal Sex Female 8:08 AM CDT Gender Identity Not on file Sexual Orientation Not on file Last Filed Vital Signs Vital Sign Reading Time Taken Comments Blood Pressure 104/70 12/15/2022 10:49 AM CDT Pulse 92 12/15/2022 10:49 AM CDT Temperature 37.2 C (99 F) 12/15/2022 10:49 AM CDT Respiratory Rate 24 12/15/2022 10:49 AM CDT Oxygen Saturation 97% 12/15/2022 12:36 PM CDT Inhaled Oxygen Concentration - - Weight 106.6 kg (235 lb) 12/15/2022 10:49 AM CDT Height 165.1 cm (5' 5 ) 12/15/2022 10:49 AM CDT Body Mass Index 39.11 12/15/2022 10:49 AM CDT Plan of Treatment Not on file Insurance [facility] Care Teams Diet Therapist Relationship Specialty Start Date End Date Luisana Le NP PCP - General Family Medicine 03/11/22
--- OUTSIDE RECORDS SUMMARY | 2024-11-29 09:01 | XMS_ITS | Clinical Summary ---
Author Organization [facility] [address] Address [address] [place] [id number] Care Team Providers Care Forest Worker Name Role Phone Luisana Le NP Primary Care Provider Allergies Active Allergy Reactions Criticality Noted Date [...] Active Active Problems No known active problems Surgical History Surgery Date Site/Laterality Comments TONSILLECTOMY GALLBLADDER SURGERY ANAL FISSURECTOMY Medical History Medical History Date Comments Anxiety Hyperlipidemia Family History Medical History Relation Name Comments Glaucoma Father Polychondritis Mother Relation Name Status Comments Brother Alive Father Alive Mother Alive Social History Tobacco Use Types Packs/Day Years Used Date Smoking Tobacco: Never Tobacco Cessation:Counseling Given: Not Answered AUDIT-C Answer Date Recorded Q1: How often do you have a drink containing alcohol? Never 03/11/2022 Q2: How many drinks containi ng alcohol do you have on a typical day when you are drinking? Patient does not drink Frequency of Binge Drinking Not on file 02/13 Personal Safety Answer Date Recorded Getting School Help Needed Not on file 09/07 Comments Unknown Sex and Gender Information Value Date Recorded Sex Assigned at Not on file Legal Sex Female 8:08 AM CDT Gender Identity Not on file Sexual Orientation Not on file Obstetrics History Last Filed Vital Signs Vital Sign Reading [...] 12/15/2022 10:49 AM CDT Plan of Treatment Health Maintenance Due Date Last Done Comments Breast Cancer Screening-Mammogram 1978 Cervical Cancer Screening 1978 Colon Cancer Screening-Colonoscopy 1978 Depression Screening 1978 Hepatitis C Screening 1978 DTaP/Tdap/Td Vaccine (1 - Tdap) 1989 Hepatitis B Screening 1996 Regular Well Visit/Exam 18-64 1996 Covid-19 Vaccine (2023-2 5 season) 2024 08/06/2021, 11/27/2020, 10/25/2020 Influenza Vaccine (#1) 2024 , 06/24/2020, 07/01/2019 HPV Vaccines Aged Out No longer eligi ble based on patient's age to complete this topic Pneumococcal vaccine <65 Aged Out No longer eligible based on patient's age to complete this topic Insurance [facility] CIGNA AETNA [facility] Care Teams Forest Worker Relationship Specialty Start Date End Date Luisana Le NP PCP - General Family Medicine 03/11/22
[2024-11-29 13:20] LABS: Basophils Absolute Auto 0.1 K/mm3 (0.0-0.1); Basophils Percent Auto 0.7 % (0.2-1.2); Eosinophils Absolute Auto 0.1 K/mm3 (0-0.3); Eosinophils Percent Auto 1.9 % (0-4.4); Hematocrit 40.6 % (37.0-47.0); Hemoglobin 12.9 g/dL (12.0-15.0); Immature Granulocyte Absolute 0.01 K/mm3 (0.00-0.031); Immature Granulocyte Percent A 0.1 % (0-0.5); Lymphocytes Absolute Auto 2.08 K/mm3 (0.9-3.2); Lymphocytes Percent Auto 27.7 % (18.3-44.2); Mean Corpuscular HGB Conc 31.8 g/dl (32-36); Mean Corpuscular Hemoglobin 27.6 pg (26-34); Mean Corpuscular Volume 86.8 fl (80-100); Mean Platelet Volume 10.7 fl (7.4-10.4); Monocytes Absolute Auto 0.4 K/mm3 (0.1-0.6); Monocytes Percent Auto 4.8 % (2.6-8.5); Neutrophils Absolute Auto 4.9 K/mm3 (1.3-6.7); Neutrophils Percent Auto 64.8 % (45.5-73.1); Platelet Count Result 302 k/mm3 (150-375); Red Blood Count 4.68 M/mm3 (4.2-5.4); Red Cell Distribution Width 13.7 % (11.5-14.5); White Blood Count 7.5 K/mm3 (4.5-10.0)
[2024-11-29 13:56] LABS: Alanine Aminotransferase 29 U/L (6-35); Albumin Level 4.2 g/dL (3.5-5.1); Alkaline Phosphatase 56 U/L (38-126); Anion Gap 10 mmol/L (4-12); Aspartate Amino Transferase 41 U/L (14-36); Bilirubin,Total 0.7 mg/dL (0.2-1.3); Blood Urea Nitrogen 9 mg/dL (7-17); Calcium 9.4 mg/dL (8.4-10.2); Carbon Dioxide 26 mmol/L (22-30); Chloride 103 mmol/L (98-107); Cholesterol 105 mg/dL (0-200); Estimated Glomerular Filt Rate > 60; Glucose 75 mg/dL (65-110); HDL Direct 67 mg/dL; Potassium 4.1 mmol/L (3.4-5.0); Sodium 139 mmol/L (137-145); Triglycerides 86 mg/dL (<150)
[2024-11-29 13:57] LABS: Vitamin D 25 Hydroxy 59.6 ng/mL
[2024-11-29 14:24] LABS: LDL Cholesterol Direct < 30 mg/dL
[2024-11-29 14:25] LABS: Hemoglobin A1C 5.1 % (<5.7)
[2024-11-29 14:39] LABS: Microalbumin Urine Random 19.3 mg/L (0-16.7)
[2024-11-29 14:40] LABS: Creatinine Urine 204.1 mg/dL; MALB Creatinine Ratio 9.5 mg/g (0-30)
== END 2024-11-29 08:45 | disposition home or self-care (01) ==
LOC: ANHGOSHLAB 08:44
PROVIDERS: PCP Nurse Practitioner Family; Visit Provider Nurse Practitioner Family
DX: E78.5 Hyperlipidemia, unspecified (principal); I10 Essential (primary) hypertension; E55.9 Vitamin D deficiency, unspecified; E11.9 Type 2 diabetes mellitus without complications; F41.9 Anxiety disorder, unspecified
CPT/HCPCS: 36415; 80053; 80061; 82043; 82306; 83036; 84443; 85025

== ENCOUNTER 2024-12-13 13:07 | Outpatient (CLI) | payer BC, OTHER, SELFPAY ==
--- OUTSIDE RECORDS SUMMARY | 2024-12-13 14:16 | XMS_ITS | Clinical Summary ---
Author Organization [facility] [address] Address [address] [place] [phone] Care Team Providers Care Compotype Operator Name Role Phone Luisana Le NP Primary Care Provider [phone] Allergies Active Allergy Reactions Criticality Noted Date [...] to complete this topic Insurance [facility] CIGNA AETNA [facility] Care Teams Compotype Operator Relationship Specialty Start Date End Date Luisana Le NP PCP - General Family Medicine 03/11/22
--- OUTSIDE RECORDS SUMMARY | 2024-12-13 14:16 | XMS_ITS | Referral Summary ---
Author Organization [facility] [address] Address [address] [place] [phone] Care Team Providers Care Plant And Instrument Engineer Name Role Phone Luisana Le NP Primary Care Provider [phone] Allergies Active Allergy Reactions Criticality Noted Date [...] of Treatment Not on file Insurance CIGNA [facility] CIGNA [facility] Care Teams Plant And Instrument Engineer Relationship Specialty Start Date End Date Luisana Le NP PCP - General Family Medicine 03/11/22
[2024-12-15 15:28] LABS: Almond (F20) IgE <0.10 kU/L; Brazil Nut (f18) <0.10 kU/L; Brazil Nut (f18) Class 0; Cashew Nut (F202) IgE <0.10 kU/L; Cashew Nut (F202) IgE Class 0; Codfish (F3) IgE <0.10 kU/L; Codfish (F3) IgE Class 0; Cow's Milk (F2) IgE <0.10 kU/L; Cow's Milk (F2) IgE Class 0; Egg White (F1) IgE <0.10 kU/L; Egg White (F1) IgE Class 0; Hazelnut (F17) IgE <0.10 kU/L; Hazelnut (F17) IgE Class 0; Macadamia Nut (rf345) <0.10 kU/L; Macadamia Nut (rf345) Class 0; Peanut (F13) IgE <0.10 kU/L; Peanut (F13) IgE Class 0; Salmon (F41) IgE <0.10 kU/L; Salmon (F41) IgE Class 0; Scallop (F338) IgE <0.10 kU/L; Scallop (F338) IgE Class 0; Sesame Seed <0.10 kU/L; Shrimp (F24) IgE <0.10 kU/L; Soybean (F14) IgE <0.10 kU/L; Soybean (F14) IgE Class 0; Tuna (F40) <0.10 kU/L; Tuna (F40) Class 0; Walnut (F256) IgE <0.10 kU/L; Walnut (F256) IgE Class 0; Wheat (F4) IgE <0.10 kU/L; Wheat (F4) IgE Class 0
== END 2024-12-13 13:08 | disposition home or self-care (01) ==
LOC: ANHGOSHLAB 13:08
PROVIDERS: PCP Nurse Practitioner Family; Visit Provider Nurse Practitioner Family
DX: T78.1XXA Other adverse food reactions, not elsewhere classified, initial encounter (principal)
CPT/HCPCS: 36415; 86003

== ENCOUNTER 2025-01-03 16:02 | Outpatient (CLI) | payer BC, OTHER, SELFPAY ==
--- NOTE | ~2025-01-03 | MM_ITS ---
EXAMINATION: MM screening leonila BI w livier HISTORY: Screening TECHNIQUE: Craniocaudal and mediolateral oblique 3-D tomosynthesis images were obtained and synthetic 2-D images were generated. CAD analysis was submitted and interpreted. COMPARISON: Comparison to multiple prior studies sequentially, with oldest reviewed study dated 03/29. BREAST PARENCHYMAL COMPOSITION: Not dense: There are scattered areas of fibroglandular density. FINDINGS: There is a new mass superiorly in the right breast on MLO view, posterior third. The left b reast is stable without evidence for malignancy. IMPRESSION: 1. New right breast mass. 2. Additional mammographic views and possible breast ultrasound are recommended. BI-RADS Category 0: Incomplete: Needs additional imaging evaluation. Reviewed, dictated and finalized at location A. IMPRESSION: 1. New right breast mass. 2. Additional mammographic views and possible breast ultrasound are recommended . BI-RADS Category 0: Incomplete: Needs additional imaging evaluation.
--- OUTSIDE RECORDS SUMMARY | 2025-01-03 17:59 | XMS_ITS | Referral Summary ---
Author Organization [facility] [address] Address [address] [place] [phone] Care Team Providers Care Nurses Medical Assistants Phlebotomists Name Role Phone Luisana Le NP Primary Care Provider [phone] Allergies Active Allergy Reactions Criticality Noted Date [...] of Treatment Not on file Insurance CIGNA [facility] CIGNA [facility] Care Teams Nurses Medical Assistants Phlebotomists Relationship Specialty Start Date End Date Luisana Le NP PCP - General Family Medicine 03/11/22
--- OUTSIDE RECORDS SUMMARY | 2025-01-03 17:59 | XMS_ITS | Clinical Summary ---
Author Organization [facility] [address] Address [address] [place] [phone] Care Team Providers Care Temp Recruiter Name Role Phone Luisana Le NP Primary Care Provider [phone] Allergies Active Allergy Reactions Criticality Noted Date [...] season) 2024 08/06/2021, 11/27/2020, 10/25/2020 Influenza Vaccine (Season Ended) 2025 06/21/2021, 06/24/2020, 07/01/2019 HPV Vaccines Aged Out No longer eligi ble based on patient's age to complete this topic Pneumococcal vaccine <65 Aged Out No longer eligible based on patient's age to complete this topic Insurance [facility] CIGNA AETNA [facility] Care Teams Temp Recruiter Relationship Specialty Start Date End Date Luisana Le NP PCP - General Family Medicine 03/11/22
== END 2025-01-03 16:03 | disposition home or self-care (01) ==
PROVIDERS: PCP Nurse Practitioner Family; Visit Provider Obstetrics & Gynecology
DX: Z12.31 Encounter for screening mammogram for malignant neoplasm of breast (principal); R92.8 Other abnormal and inconclusive findings on diagnostic imaging of breast
CPT/HCPCS: 77063; 77067

== ENCOUNTER 2025-01-19 13:33 | Outpatient (CLI) | payer BC, OTHER, SELFPAY ==
--- NOTE | ~2025-01-19 | MMUS_ITS ---
EXAMINATION: MM diagnostic leonila RT w livier, US breast RT limited HISTORY: Follow-up new right breast mass TECHNIQUE: Additional 3-D tomosynthesis images of the right breast were performed and synthetic 2-D i mages were generated. CAD analysis was submitted and interpreted. High resolution Limited right breas t ultrasound was performed. COMPARISON: Comparison to multiple prior studies sequentially, with oldest reviewed study dated 05/2020. BREAST PARENCHYMAL COMPOSITION: Not dense: There are scattered areas of fibroglandular density. FINDINGS: MAMMOGRAPHIC FINDINGS: There is a small mass in the upper outer quadrant of the right breast, posterior third near the skin surface containing punctate calcifications. There are benign right breast calcifications elsewhere. T here are no suspicious areas of architectural distortion. ULTRASOUND: Limited right breast ultrasound: At 10:00, 8 cm from the nipple there is 9 mm intramammary lymph node . At 10:00, 8 cm from the nipple there is an ill-defined hypoechoic mass which involves the subcutane ous tissues with posterior shadowing. At 12:00, 1 cm from the nipple there is a 2 mm cyst. IMPRESSION: 1. Irregular shaped hypoechoic mass with posterior shadowing near the lateral skin surface at 10:00, 8 cm from the nipple measuring 4 mm greatest dimension. 2. Biopsy of this mass is recommended, although due to its small size and superficial location this i s likely not amenable to ultrasound-guided biopsy. Wire localization guided surgical excisional biops y recommended. BI-RADS CATEGORY 4-SUSPICIOUS ABNORMALITY Reviewed, dictated and finalized at location A. IMPRESSION: 1. Irregular shaped hypoechoic mass with posterior shadowing near the lateral s kin surface at 10:00, 8 cm from the nipple measuring 4 mm greatest dimension. 2. Biopsy of this mass is recommended, although due to its small size and super ficial location this is likely not amenable to ultrasound-guided biopsy. Wire l ocalization guided surgical excisional biopsy recommended. BI-RADS CATEGORY 4-SUSPICIOUS ABNORMALITY
--- OUTSIDE RECORDS SUMMARY | 2025-01-19 13:37 | XMS_ITS | Referral Summary ---
Author Organization [facility] Address [address] [place] [phone] Care Team Providers Care Pipe Line Maintenance Supervisor Name Role Phone Luisana Le NP Primary Care Provider [phone] Allergies Active Allergy Reactions Criticality Noted Date [...] of Treatment Not on file Insurance [employer]NA [facility] CIGNA [facility] Care Teams Pipe Line Maintenance Supervisor Relationship Specialty Start Date End Date Luisana Le NP PCP - General Family Medicine 03/11/22
--- OUTSIDE RECORDS SUMMARY | 2025-01-19 13:37 | XMS_ITS | Clinical Summary ---
Author Organization [facility] Address [address] [place] [phone] Care Team Providers Care Auto Accessories Installer Name Role Phone Luisana Le NP Primary Care Provider [phone] Allergies Active Allergy Reactions Criticality Noted Date [...] patient's age to complete this topic Insurance [facility] CIGNA AETNA [facility] Care Teams Auto Accessories Installer Relationship Specialty Start Date End Date Luisana Le NP PCP - General Family Medicine 03/11/22
== END 2025-01-19 13:34 | disposition home or self-care (01) ==
PROVIDERS: PCP Nurse Practitioner Family; Visit Provider Obstetrics & Gynecology
DX: R92.8 Other abnormal and inconclusive findings on diagnostic imaging of breast (principal)
CPT/HCPCS: 76642; 77061; 77065; G0279

== ENCOUNTER 2025-05-17 01:28 | Day surgery (SDC) | payer BC, OTHER, SELFPAY ==
[2025-04-28 14:51] VITALS: BMI 31.7
[2025-05-17 08:45] VITALS: BP 126/75; PULSE 99; RESP 18; TEMP 36.1; O2SAT 100; BMI 32.5
[2025-05-17] MEDS: LACTATED RINGERS 1,000 ML 150 ML IV CONT (09:02)
[2025-05-17 09:05] LABS: BEDSIDEPREGUCG Negative (Negative)
--- NOTE | 2025-05-17 09:24 | P.PNAN_ITS ---
Anes - Initial Pre Proc Eval Procedure: Operation Date: 05/17/25 10:00 Proposed Procedures p Screening Colonoscopy - Alejandro Deras MD Date/Time: 05/17/25 09:24 Surgeon: Alejandro Deras MD Pre Op Diagnosis: Personal history of colon polyps, unspecified Patient Data Age: 44 Gender: F Height: 1.65 m Weight: 88.7 kg Last Vital Signs Temp 36.1 C L 05/17/25 08:45 Pulse 99 05/17/25 08:45 Resp 18 05/17/25 08:45 BP 126/75 05/17/25 08:45 Pulse Ox 100 05/17/25 08:45 O2 Del Method Room Air 05/17/25 08:45 Allergies Allergy/AdvReac Type Severity Reaction Status Date / Time bismuth subgallate (From Allergy Severe Itching,burning,skin Verified 05/17/25 08:43 Anusol-HC) color change hydrocortisone (From Allergy Severe Itching,burning,skin Verified 05/17/25 08:43 Anusol-HC) color change resorcinol (From Anusol-HC) Allergy Severe Itching,burning,skin Verified 05/17/25 08:43 color change sumatriptan (From Imitrex) Allergy Severe catatonic Verified 05/17/25 08:43 zinc oxide (From Anusol-HC) Allergy Severe Itching,burning,skin Verified 05/17/25 08:43 color change iohexol Allergy Mild rash Verified 05/17/25 08:43 Cephalosporins Allergy Unknown Abdominal Verified 05/17/25 08:43 Pain doxycycline Allergy Unknown Abdominal Verified 05/17/25 08:43 Pain erythromycin base Allergy Unknown Abdominal Verified 05/17/25 08:43 Pain Penicillins Allergy Unknown Hives/SOB Verified 05/17/25 08:43 Home Medications ?Medication ?Instructions ?Recorded ?Confirmed ?Type alprazolam 0.25 mg tablet 0.25 mg PO DAILY PRN anxiety #30 04/11/22 04/28/25 Rx tabs levonorgestrel (Mirena) 1 device intrauterine ONCE 1 05/17/25 History fenofibrate 160 mg tablet 160 mg PO QHS 11/29/2405/17 History atorvastatin 20 mg tablet (Lipitor) 20 mg PO QHS #90 t abs 11/30/24 05/17/25 Rx buspirone 10 mg tablet 10 mg PO DAILY PRN anxiety # 180 01/26/25 04/28/25 Rx tabs duloxetine 30 mg capsule,delayed 30 mg PO HS #90 caps 01/30/25 05/17/25 Rx release (Cymbalta) semaglutide 1 mg/dose (4 mg/3 mL) See Rx Instructions .Route 02/20/25 05/17/25 Rx subcutaneous pen injector (Ozempic) .COMPLEX #9 mL esomeprazole magnesium 20 mg 20 mg PO DAILY #90 caps 0 04/03/25 05/17/25 Rx capsule,delayed release Laboratory Tests 05/17/25 05/17/25 08:45 09:00 POC Capillary Glucose 86 mg/dl (65-105) POC Urine HCG, Qual Negative (Negative) Patient hx anesthesia problems: none Family hx anesthesia problems: none Results Review: All pre-operative results and documents have been reviewed as part of the pre- operative evaluation. [facility] Past Medical History Medical History (Updated 05/17/25 @ 09:37 by Alejandro Deras MD) Colon polyp Hemorrhagic ovarian cyst Migraine Type 2 diabetes mellitus without complications (~03/2022) Obesity GERD without esophagitis Anxiety Mixed hyperlipidemia Anal fissure Decubitus ulcers Vitamin D deficiency Surgical History Surgical History History of appendectomy 03/30/24 History of gynecological procedure (~2017) Mirena IUD inserted 07/2018 History of colonoscopy with polypectomy (~10/2020) Dr Chandler, repeat in 4 yrs History of cholecystectomy History of tonsillectomy Vaginal delivery x2 Family History Family History Father Family history of glaucoma Mother Hypertension Family history of arthritis Family history of malignant neoplasm Family history of hypercholesterolemia Grandparent Family history of hypercholesterolemia Hypertension Cerebrovascular accident Other Acute myocardial infarction Family history of dementia Social History Social History Social History: , lives in [place] with and 2 school-aged boys. 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 Smoking status: Never smoker Alcohol intake: never Substance use: never Substance use type: does not use Do You Feel Safe in your Home?: Yes Lack of Transportation: No Lack of Food: Never True Current Housing: I Have Housing Concerned About Future Housing: No Difficulty Paying Gas/Electric Bills: No Difficulty Paying for Meds: No Currently Unemployed: No Education: Bachelor's Degree Difficulty w/ Childcare or Family Care: No Living arrangements: with family Occupation/Education: occupation Gender identity (if verbalized by the patient): Female Sexual Orientation (if Verbalized by the Patient): Straight or Heterosexual Spiritual care concerns: No Agree to blood products: Yes Anes - Eval Final PreProcedure Day of Procedure 05/17/25 09:24 Patient weight: obese Heart: regular rate and rhythm Lungs: clear to auscultation Airway: Mallampati scale class II Neurological: alert and oriented Last oral intake: >/= 8 hours ASA classification: III Emergent: no Anesthetic plan: proceed Anesthesia type and monitoring: general GIVS and standard monitoring Results Review: All pre-operative results and documents have been reviewed as part of the pre- operative evaluation. Informed Consent: The patient's anesthetic plan and its attendant risks and benefits were discussed with the patient/family/POA. Questions were solicited and answers provided to the satisfaction of the patient/family/POA.
--- NOTE | 2025-05-17 09:34 | P.HP_ITS ---
History of Present Illness History of Present Illness Consent: Risks, benefits, and alternatives have been discussed and questions answered. Patient agrees to proceed with procedure. Chief complaint: Personal history of colon polyps, unspecified Narrative: Josy Dawson is a 44 year old female with colon polyp in 2020 Review of Systems Review of Systems: All systems reviewed & are unremarkable except as noted in HPI and below PMFSH Past Medical History Medical History (Updated 05/17/25 @ 09:37 by Alejandro Deras MD) Colon polyp Hemorrhagic ovarian cyst Migraine Type 2 diabetes mellitus without complications (~03/2022) Obesity GERD without esophagitis Anxiety Mixed hyperlipidemia Anal fissure Decubitus ulcers Vitamin D deficiency Surgical History Surgical History History of appendectomy 03/30/24 History of gynecological procedure (~2017) Mirena IUD inserted 07/2018 History of colonoscopy with polypectomy (~10/2020) Dr Chandler, repeat in 4 yrs History of cholecystectomy History of tonsillectomy Vaginal delivery x2 Family History Family History Father Family history of glaucoma Mother Hypertension Family history of arthritis Family history of malignant neoplasm Family history of hypercholesterolemia Grandparent Family history of hypercholesterolemia Hypertension Cerebrovascular accident Other Acute myocardial infarction Family history of dementia Social History Social History Social History: , lives in [place] with and 2 school-aged boys. 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 Smoking status: Never smoker Alcohol intake: never Substance use: never Substance use type: does not use Do You Feel Safe in your Home?: Yes Lack of Transportation: No Lack of Food: Never True Current Housing: I Have Housing Concerned About Future Housing: No Difficulty Paying Gas/Electric Bills: No Difficulty Paying for Meds: No Currently Unemployed: No Education: Bachelor's Degree Difficulty w/ Childcare or Family Care: No Living arrangements: with family Occupation/Education: occupation Gender identity (if verbalized by the patient): Female Sexual Orientation (if Verbalized by the Patient): Straight or Heterosexual Spiritual care concerns: No Agree to blood products: Yes Meds Home Medications and Allergies Home Medications ?Medication ?Instructions ?Recorded ?Confirmed ?Type alprazolam 0.25 mg tablet 0.25 mg PO DAILY PRN anxiety #30 04/11/22 04/28/25 Rx tabs levonorgestrel (Mirena) 1 device intrauterine ONCE 1 05/17/25 History fenofibrate 160 mg tablet 160 mg PO QHS 11/29/2405/17 History atorvastatin 20 mg tablet (Lipitor) 20 mg PO QHS #90 t abs 11/30/24 05/17/25 Rx buspirone 10 mg tablet 10 mg PO DAILY PRN anxiety # 180 01/26/25 04/28/25 Rx tabs duloxetine 30 mg capsule,delayed 30 mg PO HS #90 caps 01/30/25 05/17/25 Rx release (Cymbalta) semaglutide 1 mg/dose (4 mg/3 mL) See Rx Instructions .Route 02/20/25 05/17/25 Rx subcutaneous pen injector ([employer]) .COMPLEX #9 mL esomeprazole magnesium 20 mg 20 mg PO DAILY #90 caps 0 04/03/25 05/17/25 Rx capsule,delayed release Allergies Allergy/AdvReac Type Severity Reaction Status Date / Time bismuth subgallate (From Allergy Severe Itching,burning,skin Verified 05/17/25 08:43 Anusol-HC) color change hydrocortisone (From Allergy Severe Itching,burning,skin Verified 05/17/25 08:43 Anusol-HC) color change resorcinol (From Anusol-HC) Allergy Severe Itching,burning,skin Verified 05/17/25 08:43 color change sumatriptan (From Imitrex) Allergy Severe catatonic Verified 05/17/25 08:43 zinc oxide (From Anusol-HC) Allergy Severe Itching,burning,skin Verified 05/17/25 08:43 color change iohexol Allergy Mild rash Verified 05/17/25 08:43 Cephalosporins Allergy Unknown Abdominal Verified 05/17/25 08:43 Pain doxycycline Allergy Unknown Abdominal Verified 05/17/25 08:43 Pain erythromycin base Allergy Unknown Abdominal Verified 05/17/25 08:43 Pain Penicillins Allergy Unknown Hives/SOB Verified 05/17/25 08:43 Vital Signs Vital Signs - 24 hr 09/03/25 08:45 Temperature 97 F L Pulse Rate 99 Respiratory Rate 18 Blood Pressure 126/75 Pulse Oximetry 100 Oxygen Delivery Room Air Exam Const: General: comfortable and no acute distress HENMT: Face/Nose/Sinus: Normal nares present Eyes: General: appearance normal, both eyes and all related structures Neck: Neck: no JVD Resp: Auscultation: clear to auscultation bilaterally Cardio: Rate: regular rate Rhythm: regular rhythm GI: Inspection: non-distended GI Palp: Yes Soft to palpation Skin: General skin exam: normal color Neuro: General: gait normal Speech: normal speech Extrem: General: normal to inspection Psych: Mental Status: mental status grossly normal Assessment and Plan Assessment and plan (1) Colon polyp: Code(s): K63.5 - Polyp of colon Status: Acute Assessment and Plan: colonoscopy
--- NOTE | 2025-05-17 09:47 | S_PTH ---
PATIENT: Josy Dawson LOC: [facility]#:[id number] AGE/SX: 44/F ROOM: RE05/17/[address]: Alejandro Deras MD : 1980 BED: DIS: 05/17/2025 SPEC #: [id number] RECD: 05/17/25 10:07 STATUS: NESTOR PERALTA #: [id number] OSCAR: 05/17/25 09:[address]: Alejandro Deras DEPT: [facility] Surgical RECD BY: Mike Orta ENTERED: 05/17/25 10:08 SP TYPE: Surgical OTHR DR: Luisana Le, MERLENE Tissues: A - Colon Polypectomy B - Colon Polypectomy Procedures: Hematoxylin and Eosin Stain Gross and Microscopic Level 4
[2025-05-17 09:50] VITALS: BP 102/61; PULSE 79; RESP 27; O2SAT 99
[2025-05-17 10:00] VITALS: BP 103/68; PULSE 88; RESP 17; O2SAT 100
[2025-05-17 10:10] VITALS: BP 119/78; PULSE 75; RESP 17; O2SAT 99
== END 2025-05-17 10:18 | disposition home or self-care (01) ==
PROVIDERS: PCP Nurse Practitioner Family; Referring Provider Internal Medicine Gastroenterology; Visit Provider Internal Medicine Gastroenterology
PROC: 0DJD8ZZ Inspection of Lower Intestinal Tract, Via Natural or Artificial Opening Endoscopic (ICD-10-PCS; CPT 45378; principal; 2025-05-17 10:00)
DX: Z12.11 Encounter for screening for malignant neoplasm of colon (principal); D12.0 Benign neoplasm of cecum; D12.5 Benign neoplasm of sigmoid colon; E11.9 Type 2 diabetes mellitus without complications; E66.9 Obesity, unspecified; Z68.32 Body mass index [BMI] 32.0-32.9, adult
CPT/HCPCS: 45385; 82948; 88305; J2704; J7120

== ENCOUNTER 2025-06-07 08:40 | Outpatient (CLI) | payer BC, OTHER, SELFPAY ==
--- OUTSIDE RECORDS SUMMARY | 2025-06-07 08:58 | XMS_ITS | Clinical Summary ---
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 Installer Name Role Phone Luisana Le NP Primary Care Provider [phone] Allergies Active Allergy Reactions Criticality Noted Date [...] 10:49 AM CDT Height 165.1 cm (5' 5) 12/15/2022 10:49 AM CDT Body Mass Index 39.11 12/15/2022 10:49 AM CDT Plan of Treatment Health Maintenance Due Date Last Done Comments Breast Cancer Screening-Mammogram 1980 Cervical Cancer Screening 1980 Colon Cancer Screening-Colonoscopy 1980 Depression Screening 1978 Hepatitis C Screening 1978 DTaP/Tdap/Td Vaccine (1 - Tdap) 1989 Hepatitis B Screening 1996 Regular Well Visit/Exam 18-64 1996 Covid-19 Vaccine (2024-2 6 season) 2025 08/06/2021, 11/27/2020, 10/25/2020 Influenza Vaccine (#1) 2025 , 06/24/2020, 07/01/2019 HPV Vaccines Aged Out No longer eligi ble based on patient's age to complete this topic Pneumococcal vaccine <65 Aged Out No longer eligible based on patient's age to complete this topic Insurance [facility] CIGNA AETNA [facility] Care Teams Lane Marker Installer Relationship Specialty Start Date End Date Luisana Le NP PCP - General Family Medicine 03/11/22
[2025-06-07 19:03] LABS: Alanine Aminotransferase 23 U/L (6-35); Albumin Level 4.3 g/dL (3.5-5.1); Alkaline Phosphatase 68 U/L (38-126); Anion Gap 7 mmol/L (4-12); Aspartate Amino Transferase 41 U/L (14-36); Bilirubin,Total 0.4 mg/dL (0.2-1.3); Blood Urea Nitrogen 13 mg/dL (7-17); Calcium 9.2 mg/dL (8.4-10.2); Carbon Dioxide 26 mmol/L (22-30); Chloride 104 mmol/L (98-107); Cholesterol 114 mg/dL (0-200); Estimated Glomerular Filt Rate 59; Glucose 77 mg/dL (65-110); HDL Direct 62 mg/dL; Potassium 4.3 mmol/L (3.4-5.0); Sodium 137 mmol/L (137-145); Total Protein 7.0 g/dL (6.3-8.2); Triglycerides 107 mg/dL (<150)
[2025-06-07 19:32] LABS: Hematocrit 42.0 % (37.0-47.0); Hemoglobin 13.4 g/dL (12.0-15.0); Immature Granulocyte Percent A 0.1 % (0-0.5); Lymphocytes Absolute Auto 2.50 K/mm3 (0.9-3.2); Mean Corpuscular HGB Conc 31.9 g/dl (32-36); Mean Corpuscular Hemoglobin 27.3 pg (26-34); Mean Corpuscular Volume 85.7 fl (80-100); Nucleated Red Blood Cells Absolute Auto 0.000 K/mm3 (0.0-0.012); Nucleated Red Blood Cells Perc 0.0 % (0.0-0.2); Platelet Count Result 319 k/mm3 (150-375); Red Blood Count 4.90 M/mm3 (4.2-5.4); White Blood Count 6.8 K/mm3 (4.5-10.0)
[2025-06-07 21:37] LABS: Hemoglobin A1C 5.4 % (<5.7)
== END 2025-06-07 08:41 | disposition home or self-care (01) ==
LOC: ANHGOSHLAB 08:40
PROVIDERS: PCP Nurse Practitioner Family; Visit Provider Nurse Practitioner Family
DX: E78.5 Hyperlipidemia, unspecified (principal); I10 Essential (primary) hypertension; E11.9 Type 2 diabetes mellitus without complications
CPT/HCPCS: 36415; 80053; 80061; 83036; 85025

== ENCOUNTER 2025-07-19 13:59 | Outpatient (CLI) | payer BC, OTHER, SELFPAY ==
--- NOTE | ~2025-07-19 | MR_ITS ---
MR breast BI wo/w con 07/24/2025 08:00 PHARMACIST AIDE INDICATION: Family history of breast cancer. TECHNIQUE: MRI of the breasts perform using standard protocol pre-and post IV contrast with the following sequences: Axial T2 STIR, axial T1, axial vibrant T1 with fat suppression precontrast and multiphasic postcontrast. COMPARISON: Comparison to multiple prior studies sequentially, with oldest reviewed study dated 05/21/2022. FINDINGS: Not dense: There are scattered areas of fibroglandular content. Right breast: There are no abnormalities on the precontrast sequences. There is mild background parenchymal enhancement. No enhancing lesions following contrast administration. No areas of enhancement meeting threshold criteria on CAD analysis. No evidence of signal abnormalities in the axillary or internal mammary node distributions. LEFT BREAST: No signal abnormalities on precontrast sequences. There is mild background parenchymal enhancement. No enhancing lesions following contrast administration. No areas of enhancement meeting threshold criteria on CAD analysis. No evidence of signal abnormalities in the axillary or internal mammary node distributions. IMPRESSION: 1: Right breast: Negative. No evidence of malignancy. BI-RADS category 1. Recommend annual mammography follow-up. 2: Left breast: Negative. No evidence of malignancy. BI-RADS category 1. Recommend annual mammography follow-up. Follow-up MRI may be useful for supplementing mammographic evaluation as clinically indicated. Reviewed, dictated and finalized at location B. [facility]IST AIDE IMPRESSION: 1: Right breast: Negative. No evidence of malignancy. BI-RADS category 1. Recommend annual mammography follow-up. 2: Left breast: Negative. No evidence of malignancy. BI-RADS category 1. Re commend annual mammography follow-up. Follow-up MRI may be useful for supplementing mammographic evaluation as clinic ally indicated.
--- OUTSIDE RECORDS SUMMARY | 2025-07-20 13:32 | XMS_ITS | Clinical Summary ---
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
== END 2025-07-19 14:00 | disposition home or self-care (01) ==
PROVIDERS: PCP Nurse Practitioner Family; Visit Provider Surgery
DX: Z12.31 Encounter for screening mammogram for malignant neoplasm of breast (principal); Z91.89 Other specified personal risk factors, not elsewhere classified; Z80.3 Family history of malignant neoplasm of breast
CPT/HCPCS: 77049; A9577; C8908